=== PATIENT | female | born 1985 | race Caucasian/White ===

== ENCOUNTER 2022-09-26 22:04 | Emergency (ER) | payer MEDICAID, SELFPAY ==
[2022-09-26 21:58] VITALS: BP 124/88; PULSE 89; RESP 17; TEMP 36.7; O2SAT 97
--- NOTE | 2022-09-26 22:21 | W.ED.GENAD ---
Discharge Plan Disposition Condition: Stable Discharge Details Chief Complaint: PsychEval Clinical Impression: Major depressive disorder with psychotic features Primary Care Provider: Rose Garcia ED Provider: Marcos Bingham Home Meds and New Rx's Prescriptions: No Action aripiprazole 5 mg Tablet 5 mg PO QHS cyclobenzaprine 10 mg Tablet 10 mg PO HS gabapentin 600 mg Tablet 600 mg PO TID nicotine 14 mg/24 hr Patch 24 Hour 14 mg ondansetron 4 mg Tablet,Disintegrating 4 mg PO Q6H PRN sertraline 50 mg Tablet 75 mg PO DAILY senna 8.6 mg Capsule 8.6 mg PO QHS methadone 5 mg/5 mL Syringe 115 mg PO Medical Decision Making 37 yo female who is from the [facility] and is in [facility] at a care bed comes in with worsening auditory hallucinations telling her to harm herself. She has had this issues for several months, has been to [place] twice. Was seen by [facility] at the care bed and referred here for voluntary psych placement. Pt denies attempts to harm herself and has no specific plan. She has a normal gait, caox4 with clear speech though is anxious. She has no findings on history or exam to suggest underlying medical process such as endocrine or infectious etiology. Given she has never been here will check basic screening labs. Has already been seen by [facility] and plan is for voluntary placement which she is in agreement with. Will provide a dose of ativan for her anxiety which she agrees with. 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 Labs without significant abnormalities, will remain in the ED until placement found or beds become available at [facility] Differential Diagnosis Differential Diagnosis: schizophrenia, schizoaffective Lab Data Lab results reviewed: Yes I reviewed the patient's lab results. HPI General Mode of arrival: ambulatory (with ems). Date/Time Provider Initiated Documentation: 09/26/22 22:05. Limitations to Documentation: no limitations. Information obtained by: patient and EMS. History of Present Illness 37 year old F presents to the emergency department with the chief complaint of auditory hallucinations, described as moderate, Patient started experiencing this month(s) (3) and it has been constant. No relieving factors improve symptom(s), No exacerbating factors reported . Patient notes denies chest pain, fever/chills, nausea/vomiting and shortness of breath. Related Data Home Medications Medication Instructions Recorded Confirmed aripiprazole 5 mg tablet 5 mg PO QHS 09/26/22 09/26/22 cyclobenzaprine 10 mg tablet 10 mg PO HS 09/26/22 09/26/22 gabapentin 600 mg tablet 600 mg PO TID 09/26/22 09/26/22 methadone 5 mg/5 mL oral syringe 115 mg PO 09/26/22 (FOR ORAL USE ONLY) nicotine 14 mg/24 hr daily 14 mg 09/26/22 transdermal patch ondansetron 4 mg disintegrating 4 mg PO Q6H PRN 09/26/22 09/26/22 tablet sennosides 8.6 mg capsule (senna) 8.6 mg PO QHS 09/26/22 09/26/22 sertraline 50 mg tablet 75 mg PO DAILY 09/26/22 09/26/22 General Stated Complaint: PsychEval SUNIL: 2 Review of Systems All systems reviewed & are unremarkable except as noted in HPI and below Constitutional Constitutional: Denies chills, Denies fever(s) and Denies weakness Cardiovascular Cardiovascular: Denies chest pain and Denies dyspnea Respiratory Respiratory: Denies cough and Denies dyspnea Gastrointestinal Gastrointestinal: Denies abdominal pain, Denies nausea and Denies vomiting Genitourinary Genitourinary: Denies dysuria Musculoskeletal Musculoskeletal: Denies joint swelling Integumentary/Breasts Skin/Breast: Denies rash Neurologic Neurologic: Denies weakness PFSH All Active Problems (Updated 09/26/22 @ 22:43 by Marcos Bingham MD) Major depressive disorder with psychotic features (Acute) Social History Smoking/Tobacco Use Status: Current every day Tobacco Type: cigarettes Smoking risk assessment performed?: Yes Alcohol Intake: never Drug use: Occasionally Substance use type: marijuana Do you feel safe at home: Yes Do you feel safe in your relationship?: Yes Exam Const General: no acute distress Orientation: alert HENMT Head: normal to inspection Ears: external ears normal General nose exam: external nose normal Mouth: moist mucous membranes Eyes General: appearance normal, both eyes and all related structures Neck Neck: normal visual inspection Resp Effort & Inspection: normal respiratory effort and able to speak in complete sentences Cardio Rate: regular rate Skin General skin exam: no rashes or lesions noted Neuro General: patient alert and patient oriented x3 Cranial Nerves: CN's II-XI intact bilaterally Cognition: normal cognition Speech: speech normal Gait: normal gait Motor: muscle tone normal throughout Sensory Exam: no sensory deficits noted Extrem General: normal to inspection Psych Speech and Movement: speech and movement normal Attitude: cooperative Course Vital Signs Vital signs: Vital Signs Temperature 36.7 C 09/26/22 21:58 Pulse 89 09/26/22 21:58 Respiratory Rate 17 09/26/22 21:58 Blood Pressure 124/88 09/26/22 21:58 Pulse Oximetry 97 09/26/22 21:58 Temperature 36.7 C 09/26/22 21:58 Temperature Source Oral 09/26/22 21:58 Pulse 89 09/26/22 21:58 Respiratory Rate 17 09/26/22 21:58 Respiratory Effort Normal 09/26/22 22:04 Blood Pressure 124/88 09/26/22 21:58 Blood Pressure Position Sitting 09/26/22 21:58 Pulse Oximetry 97 09/26/22 21:58 Oxygen Delivery Method Room Air 09/26/22 21:58 Oxygen Flow Rate 0 09/26/22 21:58 Pain Level 0 09/26/22 21:58
[2022-09-26 22:43] LABS: Abs Immature Grans 0.04 10^3/uL (0.0-0.06); Absolute Basophil Count 0.07 10^3/uL (0.0-0.2); Absolute Eosinophil Count 0.14 10^3/uL (0.0-0.7); Absolute Lymphocyte Count 3.47 10^3/uL (1.2-3.4); Absolute Neutrophil Count 6.25 10^3/uL (1.2-6.7); Basophils % 0.7; Eosinophils % 1.3; HCT 39.2 % (36.0-46.0); HGB 13.5 g/dL (11.2-15.7); Immature Grans % 0.4; Lymphocytes % 32.8; MCH 30.9 pg (27.0-33.0); MCHC 34.4 % (32.0-36.0); MCV 90 fL (80-95); MPV 9.3 fL (8.0-11.0); Monocytes % 5.7; Neutrophils % 59.1; Platelet Count 318 10^3/uL (130-400); RBC 4.37 10^6/uL (3.93-5.22); RDW 12.8 % (11.7-14.6); RDW-SD 41.9 fL; WBC 10.57 10^3/uL (4.4-10.8)
--- OUTSIDE RECORDS SUMMARY | 2022-09-26 22:56 | XMS_ITS | Continuity of Care Document ---
Author Name Unknown Organization [facility] Address [address] [place] [address] Care Team Providers Care President And Cmo Name Role Phone Rose Garcia Primary Care Physician Encounter [facility] Date(s): 08/02/22 - 08/02/22 [facility] [address] [place] [address] Encounter Diagnosis Substance use disorder(Discharge Diagnosis) - 08/02/22 Discharge Disposition: Discharge/Transfer - Other Type of Inst Attending Physician: J Carlos Palmer MD Admitting Physician: J Carlos Palmer MD Allergies, Adverse Reactions, Alerts No Known Medication Allergies Substance Reaction Severity Status RAGWEED POLLEN Unknown Active Assessment and Plan Future Appointments Functional Status 08/02/22 Other exposure to Infectious Disease Non e Immunizations Given and Recorded Vaccine Date Status Refusal Reason influenza virus vaccine, live 1 03/14/21 Recorded influenza virus vaccine, live 2 02/19/20 Recorded influenza virus vaccine, live 02/25/19 Recorded SARS-CoV-2 (COVID-19) mRNA-1273 vaccine 10/21/20 R ecorded SARS-CoV-2 (COVID-19) mRNA-1273 vaccine 09/19/20 R ecorded influenza virus vaccine, inactivated 05/28/17 Bryan rded influenza virus vaccine, inactivated 03/21/16 Bryan rded influenza virus vaccine, inactivated 01/26/15 Bryan rded influenza virus vaccine, inactivated 03/10/14 Bryan rded influenza virus vaccine, inactivated 03/06/13 Bryan rded influenza virus vaccine, inactivated 06/11/12 Bryan rded tetanus/diphth/pertuss (Tdap) adult/adol 03/11/12 Recorded 1Result Comment: verified by CS 2Result Comment: Patient tolerated well Medications cyclobenzaprine 10 mg oral tablet 10 mg = 1 tab, Oral, every night at bedtime, # 90 tab, 3 Refill(s), Pharmacy: [id number],152.4, cm, 03/24/22 10:01:00 EDT, Height/Length Dosing, 63.5, kg, 03/24/22 10:01:00 EDT, Weight Dosing Start Date: 05/24/22 Stop Date: 05/19/23 Status: Ordered fluticasone 50 mcg/inh nasal spray 2 sprays, Nasal, Daily, For 30 days, 0 Refill(s) Start Date: 10/11/21 Status: Ordered gabapentin 600 mg oral tablet 600 mg = 1 tab, Oral, 5 times per day, # 150 tab, 11 Refill(s), Pharmacy: [facility], 152.4, cm, 03/24/22 10:01:00 EDT, Height/Length Dosing, 63.5, kg, 03/24/22 10:01:00 EDT, Weight Dosing Start Date: 05/24/22 Stop Date: 05/19/23 Status: Ordered ibuprofen 600 mg oral tablet See Instructions, TAKE ONE TABLET BY MOUTH THREE TIMES A DAY, # 90 tab, 5 Refill(s), Pharmacy: [id number], 152.4, cm, 03/24/22 10:01:00 EDT, Height/Length Dosing, 63.5, kg, 03/24/22 10:01:00 EDT, Weight Dosing Start Date: 05/01/22 Status: Ordered methadone 120 mg =, Oral, Daily, 0 Refill(s) Start Date: 07/09/22 Status: Ordered ondansetron 4 mg oral tablet, disintegrating See Instructions, DISSOLVE ONE TABLET BY MOUTH THREE TIMES DAILY, # 90 tab, 0 Refill(s), Pharmacy: [facility], 152.4, cm, 03/24/22 10:01:00 EDT, Height/Length Dosing, 63.5, kg, 03/24/22 10:01:00 EDT, Weight Dosing Start Date: 04/16/22 Status: Ordered polyethylene glycol 3350 17 g =, Oral, Daily, For 30 days, 0 Refill(s) Start Date: 10/11/21 Status: Ordered SEROquel 25 mg =, Oral, Daily, 0 Refill(s) Start Date: 08/02/22 Status: Ordered SEROquel 25 mg oral tablet 25 mg = 1 tab, Oral, every evening, X 7 days, # 7 tab, 0 Refill(s), 08/09/22 11:15:00 EDT, Pharmacy: [id number], 152, cm, 08/02/22 9:20:00 EST, Height/Length Dosing, 61, kg, 08/02/22 9:20:00 EST, Weight Dosing Start Date: 08/02/22 Stop Date: 08/09/22 Status: Ordered Problem List Condition Confirmation Course Effective Dates Status H ealth Status Informant Anxiety disorder Confirmed Active Attention deficit hyperactivity disorder Confirmed Active Developmental academic disorder Confirmed Active Housing problem 1 Confirmed Active Insomnia 2 Confirmed Active Obstructive sleep apnea syndrome Confirmed Active Osteoarthritis 3 Confirmed 03/26/18 Active pain of left knee 4 Confirmed Active Psychoactive substance abuse 5 Confirmed Active Spasm 6 Confirmed 07/17/20 Active Specific reading disorder Confirmed Active 1From 07-17-2020 visit: 07/08/2020 [facility]'s Rose Fosterismael JUAN hopes that she will get her Disability determination due to her mental health and orthopedic problems. This would help with her housing insecurity and make social determinants of health less of a problem for her. 2From 03-06-2021 visit: 03/03/2021 Worsening. Patient will discuss her sleep problems with Amparo Lema, insurance agency manager. 3From 03-26-2018 visit: 03/26/2018 Onto Celebrex. Also started Omeprazole because she is vomiting. 4From 06-18-2020 visit: Had surgery on the knee after severe ski accident, but knee stability, arthritis led to chronic pain. 04/30/2019 Patient stopped her tramadol and the gabapentin is ok at 600mg FIVE times a day. 2019 We will allow Gabapentin 600mg SIX times a day. 02/19/2020 Sees [facility]OU for methadone and remains on Gabapentin. We will check her EKG at next visit. Patient doing better now than she has in many years. 06/10/[address] of Gabapentin. 06/17/2020 Patient will work with Barby Lema re: the gabapentin. Barby is ok with 600mg QID. Their office will reach out. We will send in promethazine. We will cancel the Cyclobenzaprine refills. 5From 10-05-2019 visit: doing well at [facility] on methadone. 6From 06-08-2021 visit: 03/03/2021 Stable. Patient currently taking cyclobenzaprine 10 mg at bedtime because of knots on theleft knee. 07/08/2020 Worsening. Ok at half to one of Cyclobenzaprine every night. She has a year supply. 06/17/2020 Patient will work with Barby Lema re: the gabapentin. Barby is ok with 600mg QID. Their office will reach out. We will send in promethazine. We will cancel the Cyclobenzaprine refills. Procedures Procedure Date Related Diagnosis Body Site Status Orthopedic surgery 1 11/22/11 Comp leted 1knee arthroscopy with anterior cruciate ligament reconstruction. (See full report) Results Laboratory List Name Date Test Urine Qual 08/02/22 Urinalysis with Micro if Indicated and C ulture if Indicated 08/02/22 Most recent to oldest [Reference Range]: 1 UA Color Pale Yellow (08/02/22 9:55 AM) UA Urobilinogen Normal (08/02/22 9:55 AM) UA Bili [Negative] Negative (08/02/22 9:55 AM) UA Ketones Trace *ABN* (08/02/22 9:55 AM) UA Leuk Est Negative (08/02/22 9:55 AM) UA Nitrite Negative (08/02/22 9:55 AM) UA Glucose [Negative] Negative (08/02/22 9:55 AM) UA Protein Negative (08/02/22 9:55 AM) UA Blood Negative (08/02/22 9:55 AM) UA Spec Grav <=1.005 *NA* (08/02/22 9:55 AM) UA pH 6.0 *NA* (08/02/22 9:55 AM) UA Appear Clear (08/02/22 9:55 AM) U hCG Ql Negative (08/02/22 9:55 AM) Vital Signs Most recent to oldest [Reference Range]: 1 Temperature Temporal Artery [36-38 Deg C ] 37.7 Deg C (08/02/22 9:06 AM) Peripheral Pulse Rate [60-100 bpm] 105 b pm *HI* (08/02/22 9:06 AM) Respiratory Rate [12-24 br/min] 16 br/mi n (08/02/22 9:06 AM) Blood Pressure [90-140/60-90 mmHg] 108/8 4mmHg (08/02/22 9:06 AM) Weight Dosing 61.00 kg (08/02/22 9:20 AM) Weight Estimated 61.00 kg (08/02/22 9:06 AM) Height/Length Dosing 152.000 cm (08/02/22 9:20 AM) Height/Length Estimated 152.000 cm (08/02/22 9:06 AM) Social History Social History Type Response Smoking Status Smoking tobacco use: Never tobacco user;Never 1 entered on: 10/11/21 Sex Female 1most recent tobacco screenin09-01-2021 Hospital Discharge Instructions Patient Education 08/02/2022 10:14:54 Substance Use Disorder Substance Use Disorder Substance use disorder occurs when a person's repeated use of drugs or alcohol interferes with his or her ability to be productive. This disorder can cause problems with mental and physical health. It can affect your ability to have healthy relationships, and it can keep you from being able to meetyour responsibilities at work, home, or school. It can also lead to addiction, which is a conditionin which the person cannot stop using the substance consistently for a period of time. Addiction changes the way the brain works. Because of these changes, addiction is a chronic condition. Substance use disorder can be mild, moderate, or severe. The most commonly abused substances include: ??? Alcohol. ??? Tobacco. ??? Marijuana. ??? Stimulants, such as cocaine and methamphetamine. ??? Hallucinogens, such as LSD and PCP. ??? Opioids, such as some prescription pain medicines and heroin. What are the causes? This condition may develop due to many complex social, psychological, or physical reasons, such as: ??? Stress. ??? Abuse. ??? Peer pressure. ??? Anxiety or depression. What increases the risk? This condition is more likely to develop in people who: ??? Use substances to cope with stress. ??? Have been abused. ??? Have a mental health disorder, such as depression. ??? Have a family history of substance use disorder. What are the signs or symptoms? Symptoms of this condition include: ??? Using the substance for longer periods of time or at a higher dosage than what is normal or intended. ??? Having a lasting desire to use the substance. ??? Being unable to slow down or stop the use of the substance. ??? Spending an abnormal amount of time getting the substance, using the substance, or recovering from using the substance. ??? Using the substance in a way that interferes with work, school, social activities, and personalrelationships. ??? Using the substance even after having negative consequences, such as: ??? Health problems. ??? Legal or financial troubles. ??? Job loss. ??? Relationship problems. ??? Needing more and more of the substance to get the same effect (developing tolerance). ??? Experiencing unpleasant symptoms if you do not use the substance (withdrawal). ??? Using the substance to avoid withdrawal symptoms. How is this diagnosed? This condition may be diagnosed based on: ??? A physical exam. ??? Your history of substance use. ??? Your symptoms. This includes: ??? How substance use affects your life. ??? Changes in personality, behaviors, and mood. ??? Having at least two symptoms of substance use disorder within a 12-month period. ??? Health issues related to substance use, such as liver damage, shortness of breath, fatigue, cough, or heart problems. ??? Blood or urine tests to screen for alcohol and drugs. How is this treated? This condition may be treated by: ??? Stopping substance use safely. This may require taking medicines and being closely monitored for several days. ??? Taking part in group and individual counseling from mental health providers who help people with substance use disorder. ??? Staying at a live-in (residential) treatment center for several days or weeks. ??? Attending daily counseling sessions at a treatment center. ??? Taking medicine as told by your health care provider: ??? To ease symptoms and prevent complications during withdrawal. ??? To treat other mental health issues, such as depression or anxiety. ??? To block cravings by causing the same effects as the substance. ??? To block the effects of the substance or replace good sensations with unpleasant ones. ??? Participating in a support group to share your experience with others who are going through thesame thing. These groups are an important part of long-term recovery for many people. Recovery can be a long process. Many people who undergo treatment start using the substance again after stopping (relapse). If you relapse, that does not mean that treatment will not work. Follow these instructions at home: ??? Take vcvc-fkz-mpwuvrb and prescription medicines only as told by your health care provider. ??? Do not use any drugs or alcohol. ??? Avoid temptations or triggers that you associate with your use of the substance. ??? Learn and practice techniques for managing stress. ??? Have a plan for vulnerable moments. Get phone numbers of people who are willing to help and whoare committed to your recovery. ??? Attend support groups on a regular basis. These groups include 12-step programs like AlcoholicsAnonymous and Narcotics Anonymous. ??? Keep all follow-up visits as told by your health care providers. This is important. This includes continuing to work with therapists and support groups. Contact a health care provider if: ??? You cannot take your medicines as told. ??? Your symptoms get worse. ??? You have trouble resisting the urge to use drugs or alcohol. Get help right away if you: ??? Relapse. ??? Think that you may have taken too much of a drug. The hotline of the National Poison Control Center is . ??? Have signs of an overdose. Symptoms include: ??? Chest pain. ??? Confusion. ??? Sleepiness or difficulty staying awake. ??? Slowed breathing. ??? Nausea or vomiting. ??? A seizure. ??? Have serious thoughts about hurting yourself or someone else. Drug overdose is an emergency. Do not wait to see if the symptoms will go away. Get medical help right away. Call your local emergency services (648 in the [place] Do not drive yourself to the hospital. If you ever feel like you may hurt yourself or others, or have thoughts about taking your own life,get help right away. You can go to your nearest emergency department or call: ??? Your local emergency services (923 in the [place] ??? A suicide crisis helpline, such as the National Suicide Prevention Lifeline at . This is open 24 hours a day. Summary ??? Substance use disorder occurs when a person's repeated use of drugs or alcohol interferes with his or her ability to be productive. ??? Taking part in group and individual counseling from mental health providers is a common treatment for people with substance use disorder. ??? Recovery can be a long process. Many people who undergo treatment start using the substance again after stopping (relapse). A relapse does not mean that treatment will not work. ??? Attend support groups such as Alcoholics Anonymous and Narcotics Anonymous. These groups are animportant part of long-term recovery for many people. This information is not intended to replace advice given to you by your health care provider. Make sure you discuss any questions you have with your health care provider. Document Revised: 09/04/2019 Document Reviewed: 06/25/2018 [employer] Patient Education ?? 2021 [employer]. Follow Up Care 08/02/2022 09:06:35 With:Rose Garcia PA-C Address: [address] [place] [phone] When:1 week Emergency department Discharge instructions * J Carlos Palmer MD: PERFORM Event Display: ED Discharge Information Authored Date: [id number] JOSE MORRIS :1985 Age:37 years Sex:Female Visit Date:08/02/2022 Primary Care Physician: Rose Garcia PA-C Discharge Instructions We would like to thank you for allowing us to assist you with your healthcare needs. The following includes patient education materials and information regarding your injury/illness. Diagnosis from Today's Visit Substance use disorder Discharge Vitals Temperature??(Temporal Artery) 99.9 ??F (37.7 ??C) Heart Rate??(Peripheral) 105 Respiratory Rate?? 16 Blood Pressure?? 108/84?? Height?? 59.84 in (152.000 cm) Weight??(Estimated) 134.50 lb (61.00 kg) Allergies No Known Medication Allergies RAGWEED POLLEN What to Do Next Instructions from Your Care Team Please follow-up with your regular doctor for long-term refills on your medications.?? Please return to the emergency department if you have any new or concerning symptoms including any thoughts of wanting to hurt yourself, hurt anybody else, any fever, new pains, or other concerns. You Need to Schedule the Following Appointments Follow Up with??Rose Garcia PA-C When:??Within 1 week Where: [address] [place] [phone] Upcoming Scheduled Appointments Sunday 12:40 PM EDT ?? You were treated today on an emergency basis; it may be soto to contact your primary care provider to notify them of your visit today. You may have been referred to your regular doctor or a specialist, please follow up as instructed. If your condition worsens or you can't get in to see the doctor, contact the Emergency Department. Medications What How Much When Why Instructions Next Dose Changed QUEtiapine (SEROquel 25 mg oral tablet) 1 tab Oral (given by mouth) Every evening Substance use disorder Duration: 7 Days Pickup at [facility] Changed QUEtiapine (SEROquel) 25 Milligrams Oral (given by mouth) Every day Unchanged cyclobenzaprine (cyclobenzaprine 10 mg oral tablet) 1 tab Oral (given by mouth) Every night at bedtime Duration: 90 Days Unchanged fluticasone nasal (fluticasone 50 mcg/ inh nasal spray) 2 Sprays Nasal (into the nose) Every day For 30 days ?? Unchanged gabapentin (gabapentin 600 mg oral tablet) 1 tab Oral (given by mouth) 5 times per day Adjustment disorder with anxious mood Duration: 30 Days Unchanged ibuprofen (ibuprofen 600 mg oral tablet) See instructions TAKE ONE TABLET BY MOUTH THREE TIMES A DAY ?? Unchanged methadone 120 Milligrams Oral (given by mouth) Every day Unchanged ondansetron (ondansetron 4 mg oral tablet, disintegrating) See instructions DISSOLVE ONE TABLET BY MOUTH THREE TIMES DAILY ?? Unchanged polyethylene glycol 3350 17 Gram Oral (given by mouth) Every day For 30 days ?? Pharmacy Information [facility]: [address], [place] [id number] [phone] Education Materials Substance Use Disorder Substance use disorder occurs when a person's repeated use of drugs or alcohol interferes with his or her ability to be productive. This disorder can cause problems with mental and physical health. It can affect your ability to have healthy relationships, and it can keep you from being able to meetyour responsibilities at work, home, or school. It can also lead to addiction, which is a conditionin which the person cannot stop using the substance consistently for a period of time. Addiction changes the way the brain works. Because of these changes, addiction is a chronic condition. Substance use disorder can be mild, moderate, or severe. The most commonly abused substances include: ? Alcohol. ? Tobacco. ? Marijuana. ? Stimulants, such as cocaine and methamphetamine. ? Hallucinogens, such as LSD and PCP. ? Opioids, such as some prescription pain medicines and heroin. What are the causes? This condition may develop due to many complex social, psychological, or physical reasons, such as: ? Stress. ? Abuse. ? Peer pressure. ? Anxiety or depression. What increases the risk? This condition is more likely to develop in people who: ? Use substances to cope with stress. ? Have been abused. ? Have a mental health disorder, such as depression. ? Have a family history of substance use disorder. What are the signs or symptoms? Symptoms of this condition include: ? Using the substance for longer periods of time or at a higher dosage than what is normal or intended. ? Having a lasting desire to use the substance. ? Being unable to slow down or stop the use of the substance. ? Spending an abnormal amount of time getting the substance, using the substance, or recovering from using the substance. ? Using the substance in a way that interferes with work, school, social activities, and personal relationships. ? Using the substance even after having negative consequences, such as: ? Health problems. ? Legal or financial troubles. ? Job loss. ? Relationship problems. ? Needing more and more of the substance to get the same effect (developing tolerance). ? Experiencing unpleasant symptoms if you do not use the substance (withdrawal). ? Using the substance to avoid withdrawal symptoms. How is this diagnosed? This condition may be diagnosed based on: ? A physical exam. ? Your history of substance use. ? Your symptoms. This includes: ? How substance use affects your life. ? Changes in personality, behaviors, and mood. ? Having at least two symptoms of substance use disorder within a 12-month period. ? Health issues related to substance use, such as liver damage, shortness of breath, fatigue, cough, or heart problems. ? Blood or urine tests to screen for alcohol and drugs. How is this treated? This condition may be treated by: ? Stopping substance use safely. This may require taking medicines and being closely monitored for several days. ? Taking part in group and individual counseling from mental health providers who help people with substance use disorder. ? Staying at a live-in (residential) treatment center for several days or weeks. ? Attending daily counseling sessions at a treatment center. ? Taking medicine as told by your health care provider: ? To ease symptoms and prevent complications during withdrawal. ? To treat other mental health issues, such as depression or anxiety. ? To block cravings by causing the same effects as the substance. ? To block the effects of the substance or replace good sensations with unpleasant ones. ? Participating in a support group to share your experience with others who are going through the same thing. These groups are an important part of long-term recovery for many people. Recovery can be a long process. Many people who undergo treatment start using the substance again after stopping (relapse). If you relapse, that does not mean that treatment will not work. Follow these instructions at home: ? Take spkf-tyv-xqthyrk and prescription medicines only as told by your health care provider. ? Do not use any drugs or alcohol. ? Avoid temptations or triggers that you associate with your use of the substance. ? Learn and practice techniques for managing stress. ? Have a plan for vulnerable moments. Get phone numbers of people who are willing to help and who arecommitted to your recovery. ? Attend support groups on a regular basis. These groups include 12-step programs like Alcoholics Anonymous and Narcotics Anonymous. ? Keep all follow-up visits as told by your health care providers. This is important. This includes continuing to work with therapists and support groups. Contact a health care provider if: ? You cannot take your medicines as told. ? Your symptoms get worse. ? You have trouble resisting the urge to use drugs or alcohol. Get help right away if you: ? Relapse. ? Think that you may have taken too much of a drug. The hotline of the National Poison Control Centeris . ? Have signs of an overdose. Symptoms include: ? Chest pain. ? Confusion. ? Sleepiness or difficulty staying awake. ? Slowed breathing. ? Nausea or vomiting. ? A seizure. ? Have serious thoughts about hurting yourself or someone else. Drug overdose is an emergency. Do not wait to see if the symptoms will go away. Get medical help right away. Call your local emergency services (641 in the [place] Do not drive yourself to the hospital. If you ever feel like you may hurt yourself or others, or have thoughts about taking your own life,get help right away. You can go to your nearest emergency department or call: ? Your local emergency services (959 in the [place] ? A suicide crisis helpline, such as the National Suicide Prevention Lifeline at . Thisis open 24 hours a day. Summary ? Substance use disorder occurs when a person's repeated use of drugs or alcohol interferes with his or her ability to be productive. ? Taking part in group and individual counseling from mental health providers is a common treatment for people with substance use disorder. ? Recovery can be a long process. Many people who undergo treatment start using the substance again after stopping (relapse). A relapse does not mean that treatment will not work. ? Attend support groups such as Alcoholics Anonymous and Narcotics Anonymous. These groups are an important part of long-term recovery for many people. This information is not intended to replace advice given to you by your health care provider. Make sure you discuss any questions you have with your health care provider. Document Revised: 09/04/2019 Document Reviewed: 06/25/2018 [employer] Patient Education ?? 2021 [employer] Tests Performed Lab Test Name Test Result Date/Time U hCG Ql NEGATIVE 08/02/2022 09:55 EST UA Color Pale Yello 08/02/2022 09:55 EST UA Appear CLEAR. 08/02/2022 09:55 EST UA Glucose NEGATIVE 08/02/2022 09:55 EST UA Bili NEGATIVE 08/02/2022 09:55 EST UA Ketones TRACE. 08/02/2022 09:55 EST UA Spec Grav <=1.005 08/02/2022 09:55 EST UA Blood NEGATIVE 08/02/2022 09:55 EST UA pH 6.0 08/02/2022 09:55 EST UA Protein NEGATIVE 08/02/2022 09:55 EST UA Urobilinogen 0.2 Uro 08/02/2022 09:55 EST UA Nitrite NEGATIVE 08/02/2022 09:55 EST UA Leuk Est NEGATIVE 08/02/2022 09:55 EST Patient/Education Manager Signature Patient Name:JOSE MORRIS I have received this information and my questions have been answered. Patient/Education Manager Name: Patient/Education Manager Signature: Relationship to Patient: Witness Name/Signature: Date: Electronically Signed on: 08/02/2022 11:16 ESTSigned by:LISY Emergency department Note * Codi Slade: PERFORM Event Display: ED Notes Authored Date: [id number] Patient Care team information Care Team Personnel Name: Rose Garcia PA-C Position: Physician Member Role: Informed Provider Address: Address: [address] [place] [phone] [place] Name: Simón Boyd RN Position: Nurse Member Role: ED Nurse Name: J Carlos Palmer MD Position: Physician Member Role: ED Physician Address: Address: [address] [place] [address] [address] [place] [address] [place] Care Team Related Persons Name: LYNDSEY MORRIS Address: Home Name: JS MORRIS Address: Home
--- OUTSIDE RECORDS SUMMARY | 2022-09-26 22:56 | XMS_ITS | Continuity of Care Document ---
Author Name Unknown Organization [facility] Address [address] [place] [address] Care Team Providers Care Solid Glass Rod Dowel Machine Operator Name Role Phone Rose Garcia Primary Care Physician Encounter NCTY_HI Date(s): 07/09/22 - 07/11/22 [facility] [address] [place] [address] Encounter Diagnosis Suicidal ideation(Discharge Diagnosis) - 07/09/22 Psychosis(Discharge Diagnosis) - 07/09/22 Suicidal ideations(Final) - Unspecified psychosis not due to a substance or known physiological condition (Final) - Other snf (current) drug therapy(Final) - Contact with and (suspected) exposure to other viral communicable diseases (Final) - Discharge Disposition: Psychiatric Facility/Unit Attending Physician: Darryl August MD Admitting Physician: Darryl August MD Allergies, Adverse Reactions, Alerts No Known Medication Allergies Substance Reaction Severity Status RAGWEED POLLEN Unknown Active Assessment and Plan Future Appointments Functional Status 07/11/22 ADLs Independent 07/11/22 Breakfast Percent 100 07/09/22 Other exposure to Infectious Disease Non e [...] bedtime, # 90 tab, 3 Refill(s), Pharmacy: [id number],152.4, cm, 03/24/22 10:01:00 EDT, Height/Length Dosing, 63.5, kg, 03/24/22 10:01:00 EDT, Weight Dosing Start Date: 05/24/22 Stop Date: 05/19/23 Status: Ordered fluticasone 50 mcg/inh nasal spray 2 sprays, Nasal, Daily, For 30 days, 0 Refill(s) Start Date: 10/11/21 Status: Ordered gabapentin 600 mg oral tablet 600 mg = 1 tab, Oral, 5 times per day, # 150 tab, 11 Refill(s), Pharmacy: [facility][id number], 152.4, cm, 03/24/22 10:01:00 EDT, Height/Length Dosing, 63.5, kg, 03/24/22 10:01:00 EDT, Weight Dosing Start Date: 05/24/22 Stop Date: 05/19/23 Status: Ordered ibuprofen 600 mg oral tablet See Instructions, TAKE ONE TABLET BY MOUTH THREE TIMES A DAY, # 90 tab, 5 Refill(s), Pharmacy: [facility][id number], 152.4, cm, 03/24/22 10:01:00 EDT, Height/Length Dosing, 63.5, kg, 03/24/22 10:01:00 EDT, Weight Dosing Start Date: 05/01/22 Status: Ordered methadone 120 mg, Oral, Tab-Dispers, Once, First Dose: 07/11/22 6:09:00 EST, Stop Date: 07/11/22 6:09:00 EST,Physician Stop, STAT Start Date: 07/11/22 Stop Date: 07/11/22 Status: Completed methadone 120 mg =, Oral, Daily, 0 Refill(s) Start Date: 07/09/22 Status: Ordered methadone 120 mg, Oral, Tab-Dispers, First Dose: 07/10/22 5:41:00 EST, Stop Date: 07/10/22 5:41:00 EST, STAT Start Date: 07/10/22 Stop Date: 07/10/22 Status: Completed ondansetron 4 mg oral tablet, disintegrating See Instructions, DISSOLVE ONE TABLET BY MOUTH THREE TIMES DAILY, # 90 tab, 0 Refill(s), Pharmacy: [facility][id number], 152.4, cm, 03/24/22 10:01:00 EDT, Height/Length Dosing, 63.5, kg, 03/24/22 10:01:00 EDT, Weight Dosing Start Date: 04/16/22 Status: Ordered polyethylene glycol 3350 17 g =, Oral, Daily, For 30 days, 0 Refill(s) Start Date: 10/11/21 Status: Ordered Problem List Condition Confirmation Course [...] disorder Confirmed Active 1From 07-17-2020 visit: 07/08/[address] [facility] Rose Radha JUAN hopes that she will get her Disability determination due to her mental health and orthopedic problems. This would help with her housing insecurity and make social determinants of health less of a problem for her. 2From 03-06-2021 visit: 03/03/2021 Worsening. Patient will discuss her sleep problems with Amparo Leam, ethylbenzene converter operator. 3From 03-26-2018 visit: 03/26/2018 Onto Celebrex. Also [...] Gabapentin. 06/17/2020 Patient will work with Barby lee: the gabapentin. [facility]by is ok with 600mg QID. Their office will reach out. We will send in promethazine. We will cancel the Cyclobenzaprine refills. 5From 10-05-2019 visit: doing well at [facility] on methadone. 6From 06-08-2021 visit: [...] full report) Results Laboratory List Name Date SARS-CoV-2 (COVID-19) RNA (ID Now) Acetaminophen Level 07/09/22 Alcohol Level 07/09/22 CBC w/ Diff 07/09/22 Comprehensive Metabolic Panel (CMP) 07/09 Salicylate Level 07/09/22 Test Urine Qual 07/09/22 Drug Screen Urine 07/09/22 Urinalysis with Micro if Indicated and C ulture if Indicated 07/09/22 Urinalysis Microscopic 07/09/22 Automated Diff 07/09/22 Most recent to oldest [Reference Range]: 1 WBC [5.0-10.0 x10^3/mcL] 8.6 x10^3/mcL (07/09/22 6:20 PM) RBC [4.1-5.3 x10^6/mcL] 4.2 x10^6/mcL (07/09/22 6:20 PM) Neutro Auto [40.0-75.0 %] 55.2 % (07/09/22 6:20 PM) Lymph Auto [20.0-50.0 %] 36.9 % (07/09/22 6:20 PM) Bee Auto [2.0-15.0 %] 6.4 % (07/09/22 6:20 PM) Basophil Auto [0.0-1.0 %] 0.7 % (07/09/22 6:20 PM) BUN [7-18 mg/dL] 9 mg/dL (07/09/22 6:20 PM) U Amph Scrn [Negative] Negative (07/09/22 6:02 PM) UA Color Pale Yellow (07/09/22 6:02 PM) UA WBC [0-3] 3-5 *ABN* (07/09/22 6:02 PM) Glucose Level [74-106 mg/dL] 80 mg/dL (07/09/22 6:20 PM) Potassium Level [3.5-5.1 mmol/L] 3.7 mmo l/L (07/09/22 6:20 PM) U Benzodia Scrn [Negative] Negative (07/09/22 6:02 PM) MCV [80.0-96.0] 91.7 (07/09/22 6:20 PM) UA Urobilinogen Normal (07/09/22 6:02 PM) UA Bili [Negative] Negative (07/09/22 6:02 PM) UA Ketones Negative (07/09/22 6:02 PM) AST [15-37 unit/L] 20 unit/L (07/09/22 6:20 PM) ALT [14-59 unit/L] 19 unit/L (07/09/22 6:20 PM) MCHC [31.0-35.0 g/dL] 33.8 g/dL (07/09/22 6:20 PM) Sodium Level [136-145 mmol/L] 136 mmol/L (07/09/22 6:20 PM) UA RBC [0-2] 0-2 (07/09/22 6:02 PM) UA Leuk Est 1+ *ABN* (07/09/22 6:02 PM) UA Nitrite Positive *ABN* (07/09/22 6:02 PM) UA Glucose [Negative] Negative (07/09/22 6:02 PM) Hct [37.0-47.0 %] 38.5 % (07/09/22 6:20 PM) UA Bacteria Moderate /HPF *ABN* (07/09/22 6:02 PM) U Cocaine Scrn [Negative] Negative (07/09/22 6:02 PM) Calcium Level [8.5-10.1 mg/dL] 9.7 mg/dL (07/09/22 6:20 PM) Albumin Level [3.4-5.0 g/dL] 4.6 g/dL (07/09/22 6:20 PM) Protein Total [6.4-8.2 g/dL] 8.1 g/dL (07/09/22 6:20 PM) UA Protein Negative (07/09/22 6:02 PM) MCH [26.0-32.0 pg] 31.0 pg (07/09/22:20 PM) Neutro Absolute 4.7 x10^3/mcL *NA* (07/09/22:20 PM) Bilirubin Total [0.2-1.0 mg/dL] 0.2 mg/d L (07/09/22:20 PM) Hgb [12.0-16.0 g/dL] 13.0 g/dL (07/09/22 6:20 PM) Alk Phos [46-146 unit/L] 80 unit/L (07/09/22 6:20 PM) UA Blood Negative (07/09/22 6:02 PM) Salicylate Level [2.8-20.0 mg/dL] 6.3 mg /dL (07/09/22 6:20 PM) Ethanol Level [0-10 mg/dL] <5 mg/dL (07/09/22 6:20 PM) UA Mucous None Seen /HPF (07/09/22 6:02 PM) UA Spec Grav <=1.005 *NA* (07/09/22 6:02 PM) Platelets [130-450 x10^3/mcL] 294 x10^3/ mcL (07/09/22 6:20 PM) CO2 [21-32 mmol/L] 26 mmol/L (07/09/22 6:20 PM) U Anjana Scrn [Negative] Negative (07/09/22 6:02 PM) UA Squam Epithelial [None Seen] Moderate *ABN* (07/09/22 6:02 PM) UA pH 6.5 *NA* (07/09/22 6:02 PM) U Opiate Scrn [Negative] Negative (07/09/22 6:02 PM) eGFR Non-AA [>=60] 75 (07/09/22 6:20 PM) eGFR AA [>=60] 75 (07/09/22 6:20 PM) UA Appear Hazy *ABN* (07/09/22 6:02 PM) Acetaminophen Level [10-20 ug/mL] <10 ug /mL *LOW* (07/09/22 6:20 PM) Chloride Level [98-107 mmol/L] 98 mmol/L (07/09/22 6:20 PM) U Oxy Scrn [Negative] Negative (07/09/22 6:02 PM) U PCP Scrn [Negative] Negative (07/09/22 6:02 PM) RDW-CV [11.7-17.0 %] 12.5 % (07/09/22 6:20 PM) U THC Scr [Negative] Positive *ABN* (07/09/22 6:02 PM) U PPX Scr [Negative] Negative (07/09/22 6:02 PM) U Methadone Scr [Negative] Positive *ABN* (07/09/22 6:02 PM) Imm Gran Auto [0.0-0.9 %] 0.3 % (07/09/22 6:20 PM) UA Culture Ind?. Indicated (07/09/22 6:02 PM) U Buprenorph Scr [Negative] Negative (07/09/22 6:02 PM) U mAMP Scr [Negative] Negative (07/09/22 6:02 PM) U TCA Scr [Negative] Negative (07/09/22 6:02 PM) Creatinine Level [0.55-1.02 mg/dL] 0.99 mg/dL (07/09/22 6:20 PM) SARS-CoV-2 (COVID-19) RNA (ID Now) [Not Detected] Not Detected (07/10/22 6:40 AM) Eos, Auto [1.0-6.0 %] 0.5 % *LOW* (07/09/22 6:20 PM) U hCG Ql Negative (07/09/22 6:02 PM) UA Yeast [None Seen] Rare *ABN* (07/09/22 6:02 PM) Orders for Microbiology Reports Name Date Urine Culture 07/09/22 Microbiology Reports TEST:Urine Culture STATUS:Auth (Verified) BODY SITE: SOURCE:Urine COLLECTED DATE/TIME:07/09/22 6:02 PM FINAL REPORT >100,000 cfu/ml Escherichia coli ORGANISM:Escherichia coli Vital Signs Most recent to oldest [Reference Range]: 1 2 3 Temperature Temporal Artery [36-38 Deg C] 36.4 Deg C (07/09/22 5:24 PM) Peripheral Pulse Rate [60-100 bpm] 102 bpm *HI* (07/09/22 5:24 PM) Respiratory Rate [12-24 br/min] 20 br/min (07/11/22 6:36 AM) 22 br/min (07/10/22 6:04 AM) 24 br/min (07/09/22 5:24 PM) Blood Pressure [90-140/60-90 mmHg] 130/99mmHg (07/09/22 5:24 PM) Weight Dosing 61.37 kg (07/09/22 5:43 PM) Weight Estimated 61.37 kg (07/09/22 5:24 PM) Height/Length Dosing 152.000 cm (07/09/22 5:43 PM) Height/Length Estimated 152.000 cm (07/09/22 5:24 PM) Social History Social History Type Response Smoking Status Smoking tobacco use: Never tobacco user;Never 1 entered on: 10/11/21 Sex Female 1most recent tobacco screenin09-01-2021 Pharmacology Progress note * Dianne Yang PharmD: PERFORM Event Display: Pharmacy Progress Note Authored Date: [id number] Pharmacy Progress Note med rec updated with [facility] and [facility] programs. Confirmed with Krista at [facility] patient picked up 120 mg of methadone 07/08/22 and picked up one take home dose for 07/09/22 HUSSAIN pharmD Electronically Signed on 07/10/22 11:12 AM Dianne Yang PharmD Physician Emergency department Note * Sapna Soto MD: PERFORM Event Display: ED Note Physician Authored Date: [id number] JOSE MORRIS :1985 Age:37 years Sex:Female Visit Date:07/09/2022 Primary Care Physician: Rose Garcia PA-C Basic Information Time Seen: Darryl August MD / 07/09/2022 17:25 Chief Complaint Pt presents w/ EMS, reports auditory hallucinations, SI w/ a plan, hx substance abuse including cocaine last week. Pt's plan is to OD on drugs. Pt rapid pressured speech, states I can't slow my brain down. Pt says she knows she needs help before her fam History Of Present Illness: Patient reports that she has suicidal ideation she plans to??overdose or walk out in the cold??where her parents will have to clean up??she states. ??Patient reports she is hearing voices she states??they are 2 male voices??they are telling her things like she is a liar and that everything she has??said is a lie??patient during interview seemed to not focus on interview and seemed to be responding to voices she said she was hearing. ??Patient contracts for safety here in the emergency department and??she states she is not??homicidal.?? No fever no chills??no ear pain slight nasal discharge nosore throat??patient smokes??cigarettes and pot??slight cough??no nausea no vomiting no urinary symp toms no extremity edema no skin rashes??patient reports due to the picking that she does she has all the scars??on her forehead and occasionally cuts??No recent cuts Review of Systems: see hpi for ros Physical Exam Vitals & Measurements T:??36.4?C ??(Temporal Artery)?? HR:??102??(Peripheral)?? RR:??24?? BP:??130/99?? SpO2:??96%?? HT:??152.000??cm?? WT:??61.37??kg??(Estimated)?? O2 Therapy:??Room air?? General: Alert and oriented, well nourished,?No??acute distress Eye: PER?Normal??conjunctiva,??No??scleral icterus HENT: Normocephalic,??nontraumatic??Normal hearing Lungs: Clear to auscultation,?Non-labored?? respiration Heart:?Normal?? rate,?Regular??rhythm,?No??murmur,?No??gallop,?No??edema Chest: wall excursion wnl no abnormal movements no obvious deformities Abdomen: Soft, non-tender, non-distended,?No??masses Musculoskeletal:?Normal?? range of motion and strength,?No??tenderness,?No??swelling Skin: Skin is warm, dry and pink,?No??rashes,?No??lesions Neurologic: Awake, alert and oriented X4 Psychiatric: Cooperative, appropriate mood and affect Medical Decision Making: For MDM please see under assessment and plan Procedure No Qualifying Data Assessment/Plan 1.??Suicidal ideation??R45.851 Patient reports suicidal ideation with hearing voices??she also seems to respond??to these voices that she is hearing. ??Patient is medically cleared for disposition as per mental health. 2.??Psychosis??F29 See above. Orders: Acetaminophen Level, Blood, Routine, 07/09/22 17:57:00 EST, Once, Nurse collect Salicylate Level, Blood, Routine, 07/09/22 17:57:00 EST, Once, Nurse collect Urine Culture, Urine, Stat collect, ST - Stat, 07/09/22 18:02:15 EST, Once, Nurse collect, Collected, 07/09/22 18:02:15 EST, Print Label, [id number] Medication Reconciliation Changed [id number] Milligrams. ?? Unchanged cyclobenzaprine (cyclobenzaprine 10 mg oral tablet)1 tab Oral (given by mouth) every night at bedtime for 90 Days. Refills: 3. ?? fluticasone nasal (fluticasone 50 mcg/inh nasal spray)2 Sprays Nasal (into the nose) every day. For30 days. ?? gabapentin (gabapentin 600 mg oral tablet)1 tab Oral (given by mouth) 5 times per day for 30 Days. Refills: 11. ?? ibuprofen (ibuprofen 600 mg oral tablet)TAKE ONE TABLET BY MOUTH THREE TIMES A DAY. Refills: 5. ?? ondansetron (ondansetron 4 mg oral tablet, disintegrating)DISSOLVE ONE TABLET BY MOUTH THREE TIMES DAILY. Refills: 0. ?? polyethylene glycol 321217 Gram Oral (given by mouth) every day. For 30 days. Problem List/Past Medical History Ongoing Anxiety disorder Attention deficit hyperactivity disorder Developmental academic disorder Housing problem Insomnia Obstructive sleep apnea syndrome Osteoarthritis pain of left knee Psychoactive substance abuse Spasm Specific reading disorder Historical No qualifying data Procedure/Surgical History ???Orthopedic surgery (11/23/2011) Allergies No Known Medication Allergies RAGWEED POLLEN Social History Electronic Cigarette/Vaping Electronic Cigarette Use: Never. Other Substance Use Cocaine- Comments: BAART 120 mg po daily Tobacco Never tobacco user Tobacco Use:. Never Smokeless Tobacco use:.- Comments: most recent tobacco screenin09-01-2021 Family History Breast cancer: Mother. Hypertension: Father. Malignant tumor of lung: Negative: Mother, Father, Grandfather (M), Grandfather (P), Grandmother (M) and Grandmother (P). Migraine: Mother. PsA (Psoriatic arthritis): Father. Lab Results CBC and Differential?? LATEST RESULTS?? HISTORICAL RESULTS?? WBC?? 07/09/22 18:20?? 8.6?? 03/24/22?? 7.8?? RBC?? 07/09/22 18:20?? 4.2?? 03/24/22?? 4.7?? Hgb?? 07/09/22 18:20?? 13.0?? 03/24/22?? 14.6?? Hct?? 07/09/22 18:20?? 38.5?? 03/24/22?? 42.1?? MCV?? 07/09/22 18:20?? 91.7?? 03/24/22?? 89.4?? MCH?? 07/09/22 18:20?? 31.0?? 03/24/22?? 31.0?? MCHC?? 02/12/23 18:20?? 33.8?? 03/24/22?? 34.7?? RDW-CV?? 07/09/22 18:20?? 12.5?? 03/24/22?? 12.4?? Platelets?? 07/09/22 18:20?? 294?? 03/24/22?? 352?? Neutro Auto?? 07/09/22 18:20?? 55.2?? 03/24/22?? 71.1?? Lymph Auto?? 07/09/22 18:20?? 36.9?? 03/24/22?? 22.2?? Bee Auto?? 07/09/22 18:20?? 6.4?? 03/24/22?? 5.7?? Eos, Auto?? 07/09/22 18:20?? 0.5 ??Low?? 03/24/22?? 0.3 ??Low?? Basophil Auto?? 07/09/22 18:20?? 0.7?? 03/24/22?? 0.4?? Imm Gran Auto?? 07/09/22 18:20?? 0.3?? 03/24/22?? 0.3?? Neutro Absolute?? 07/09/22 18:20?? 4.7?? 03/24/22?? 5.5? Routine Chemistry?? LATEST RESULTS?? HISTORICAL RESULTS?? Sodium Level?? 07/09/22 18:20?? 136?? 03/24/22?? 136?? Potassium Level?? 07/09/22 18:20?? 3.7?? 03/24/22?? 3.2 ??Low?? Chloride Level?? 07/09/22 18:20?? 98?? 03/24/22?? 93 ??Low?? CO2?? 07/09/22 18:20?? 26?? 03/24/22?? 35 ??High?? Alk Phos?? 07/09/22 18:20?? 80?? 03/24/22?? 86?? AST?? 07/09/22 18:20?? 20?? 03/24/22?? 24?? ALT?? 07/09/22 18:20?? 19?? 03/24/22?? 28?? BUN?? 07/09/22 18:20?? 9?? 03/24/22?? 17?? Glucose Level?? 07/09/22 18:20?? 80?? 03/24/22?? 107 ??High?? Creatinine Level?? 07/09/22 18:20?? 0.99?? 03/24/22?? 1.00?? eGFR AA?? 07/09/22 18:20?? 75?? 03/24/22?? 74?? eGFR Non-AA?? 07/09/22 18:20?? 75?? 03/24/22?? 74?? Calcium Level?? 07/09/22 18:20?? 9.7?? 03/24/22?? 10.6 ??High?? Protein Total?? 07/09/22 18:20?? 8.1?? 03/24/22?? 8.7 ??High?? Albumin Level?? 07/09/22 18:20?? 4.6?? 03/24/22?? 4.7?? Bilirubin Total?? 07/09/22 18:20?? 0.2?? 03/24/22?? 0.3? Testing?? LATEST RESULTS?? U hCG Ql?? 07/09/22 18:02?? Negative? Serum Toxicology?? LATEST RESULTS?? Acetaminophen Level?? 07/09/22 18:20?? <10 ??Low?? Salicylate Level?? 07/09/22 18:20?? 6.3?? Ethanol Level?? 07/09/22 18:20?? <5? Urine Toxicology?? LATEST RESULTS?? U Amph Scrn?? 07/09/22 18:02?? Negative?? U Anjana Scrn?? 07/09/22 18:02?? Negative?? U Benzodia Scrn?? 07/09/22 18:02?? Negative?? U Buprenorph Scr?? 07/09/22 18:02?? Negative?? U Cocaine Scrn?? 02/12/23 18:02?? Negative?? U TCA Scr?? 07/09/22 18:02?? Negative?? U THC Scr?? 07/09/22 18:02?? Positive Abnormal?? U mAMP Scr?? 07/09/22 18:02?? Negative?? U Methadone Scr?? 07/09/22 18:02?? Positive Abnormal?? U Opiate Scrn?? 07/09/22 18:02?? Negative?? U Oxy Scrn?? 07/09/22 18:02?? Negative?? U PCP Scrn?? 07/09/22 18:02?? Negative?? U PPX Scr?? 07/09/22 18:02?? Negative? UA Macroscopic?? LATEST RESULTS?? UA Color?? 07/09/22 18:02?? Pale Yellow?? UA Appear?? 07/09/22 18:02?? Hazy Abnormal?? UA Glucose?? 07/09/22 18:02?? Negative?? UA Bili?? 07/09/22 18:02?? Negative?? UA Ketones?? 07/09/22 18:02?? Negative?? UA Spec Grav?? 07/09/22 18:02?? <=1.005?? UA Blood?? 07/09/22 18:02?? Negative?? UA pH?? 07/09/22 18:02?? 6.5?? UA Protein?? 07/09/22 18:02?? Negative?? UA Urobilinogen?? 07/09/22 18:02?? Normal?? UA Nitrite?? 07/09/22 18:02?? Positive Abnormal?? UA Leuk Est?? 07/09/22 18:02?? 1+ Abnormal?? UA Culture Ind?.?? 07/09/22 18:02?? Indicated? UA Microscopic?? LATEST RESULTS?? UA WBC?? 07/09/22 18:02?? 3-5 Abnormal?? UA RBC?? 07/09/22 18:02?? 0-2?? UA Squam Epithelial?? 07/09/22 18:02?? Moderate Abnormal?? UA Yeast?? 07/09/22 18:02?? Rare Abnormal?? UA Mucous?? 07/09/22 18:02?? None Seen?? UA Bacteria?? 07/09/22 18:02?? Moderate Abnormal? Electronically Signed on 07/09/22 07:45 PM Sapna Soto MD * Renny Boles MD: PERFORM Event Display: ED Note Physician Authored Date: [id number] Patient resting comfortably throughout shift. Patient was given home doses of gabapentin, Flexeril,and later the night was experiencing worsening hallucinations and voluntarily accepted 10 mg PO haloperidol. Conversation was had with Fidel (mental health), patient is currently going to pursue voluntary treatment. However if she attempts to leave AMA, please follow- up for placement of a possible hold on the patient. Electronically Signed on 07/10/22 05:27 AM Renny Boles MD Emergency department Note * Bhavna Vasquez: PERFORM Event Display: ED Notes Authored Date: [id number] * Bhavna Vasquez: PERFORM Event Display: ED Notes Authored Date: [id number] * Bhavna Vasquez: PERFORM Event Display: ED Notes Authored Date: [id number] Patient Care team information Care Team Personnel Name: Rose Garcia PA-C Position: Physician Member Role: Informed Provider Address: Address: [address] [place] [phone] [place] Name: Darryl August MD Position: Physician Member Role: Admitting Physician Address: Address: [address] [place] [phone] [place] Name: Jade Breen RN Position: Nurse Member Role: ED Nurse Name: Aman Egan MD Position: Physician Member Role: ED Physician Address: Address: [address] Name: Maira Mehta Position: Nurse Member Role: ED Nurse Care Team Related Persons Name: LYNDSEY MORRIS Address: Home Name: JS MORRIS Address: Home
--- OUTSIDE RECORDS SUMMARY | 2022-09-26 22:56 | XMS_ITS | Continuity of Care Document ---
Author Name Unknown Organization [facility] Address [address] [place] [address] Care Team Providers Care Box Office Clerk Name Role Phone Rose Garcia Primary Care Physician Encounter [id number] Date(s): 08/08/22 - 08/08/[address] [phone] [place] Encounter Diagnosis Abdominal pain(Discharge Diagnosis) - 08/08/22 Methadone use(Discharge Diagnosis) - 08/08/22 Discharge Disposition: Home or Self Care Attending Physician: Sapna Soto MD Admitting Physician: Sapna Soto MD Allergies, Adverse Reactions, Alerts No Known Medication Allergies Substance Reaction Severity Status RAGWEED POLLEN Unknown Active Assessment and Plan Future Appointments Functional Status 08/08/22 Other exposure to Infectious Disease Non e Immunizations Given and Recorded Vaccine Date Status Refusal Reason influenza virus vaccine, live 1 03/14/21 Recorded influenza virus vaccine, live 2 02/19/20 Recorded influenza virus vaccine, live 02/25/19 Recorded SARS-CoV-2 (COVID-19) mRNA-1273 vaccine 10/21/20 R ecorded SARS-CoV-2 (COVID-19) mRNA-1273 vaccine 09/19/20 R ecorded influenza virus vaccine, inactivated 05/28/17 Bryan rded influenza virus vaccine, inactivated 03/21/16 Bryna rded influenza virus vaccine, inactivated 01/26/15 Bryan [...] bedtime, # 90 tab, 3 Refill(s), Pharmacy: [facility] #58,152, cm, 08/02/22 9:20:00 EST, Height/Length Dosing, 61, kg, 08/02/22 9:20:00 EST, Weight Dosing Start Date: 08/07/22 Stop Date: 08/02/23 Status: Ordered fluticasone 50 mcg/inh nasal spray 2 sprays, Nasal, Daily, For 30 days, 0 Refill(s) Start Date: 10/11/21 Status: Ordered gabapentin 600 mg oral tablet 600 mg = 1 tab, Oral, 5 times per day, # 150 tab, 11 Refill(s), Pharmacy: [facility] #58, 152.4, cm, 03/24/22 10:01:00 EDT, Height/Length Dosing, 63.5, kg, 03/24/22 10:01:00 EDT, Weight Dosing Start Date: 05/24/22 Stop Date: 05/19/23 Status: Ordered ibuprofen 600 mg oral tablet See Instructions, TAKE ONE TABLET BY MOUTH THREE TIMES A DAY, # 90 tab, 5 Refill(s), Pharmacy: [facility] #58, 152.4, cm, 03/24/22 10:01:00 EDT, Height/Length Dosing, 63.5, kg, 03/24/22 10:01:00 EDT, Weight Dosing Start Date: 05/01/22 Status: Ordered methadone 120 mg =, Oral, Daily, 0 Refill(s) Start Date: 07/09/22 Status: Ordered nicotine 14 mg/24 hr transdermal film, extended release 1 patches, Topical, Daily, # 90 patches, 0 Refill(s), Pharmacy: [facility] #58, 152, cm, 08/02/22 9:20:00 EST, Height/Length Dosing, 61, kg, 08/02/22 9:20:00 EST, Weight Dosing Start Date: 08/07/22 Stop Date: 11/05/22 Status: Ordered ondansetron 4 mg oral tablet, disintegrating See Instructions, DISSOLVE ONE TABLET BY MOUTH THREE TIMES DAILY, # 90 tab, 0 Refill(s), Pharmacy: [facility] #58, 152.4, cm, 03/24/22 10:01:00 EDT, Height/Length [...] tab, 0 Refill(s), 08/09/22 11:15:00 EDT, Pharmacy: [facility] #58, 152, cm, 08/02/22 9:20:00 EST, Height/Length [...] disorder Confirmed Active 1From 07-17-2020 visit: 07/08/2020 [facility]'s Rose Radha JUAN hopes that she will get her Disability determination due to her mental health and orthopedic problems. This would help with her housing insecurity and make social determinants of health less of a problem for her. 2From 03-06-2021 visit: 03/03/2021 Worsening. Patient will discuss her sleep problems with Amparo Lema, sports medicine specialist. 3From 03-26-2018 visit: 03/26/2018 Onto Celebrex. Also started Omeprazole because she is vomiting. 4From 06-18-2020 visit: Had surgery on the knee after severe ski accident, but knee stability, arthritis led to chronic pain. 04/30/2019 Patient stopped her tramadol and the gabapentin is ok at 600mg FIVE times a day. 2019 We will allow Gabapentin 600mg SIX times a day. 02/19/2020 Sees [facility] for methadone and remains on Gabapentin. We [...] 5From 10-05-2019 visit: doing well at [facility] on methadone. 6From 06-08-2021 visit: [...] Laboratory List Name Date Test Urine Qual 08/08/22 Most recent to oldest [Reference Range]: 1 U hCG Ql Negative (08/08/22 2:33 PM) Vital Signs Most recent to oldest [Reference Range]: 1 Temperature Temporal Artery [36-38 Deg C ] 36.7 Deg C (08/08/22 1:02 PM) Peripheral Pulse Rate [60-100 bpm] 103 b pm *HI* (08/08/22 1:02 PM) Respiratory Rate [12-24 br/min] 18 br/mi n (08/08/22 1:02 PM) Blood Pressure [90-140/60-90 mmHg] 124/9 5mmHg (08/08/22 1:02 PM) Weight Dosing 61.00 kg (08/08/22 1:12 PM) Weight Estimated 61.00 kg (08/08/22 1:02 PM) Height/Length Dosing 152.000 cm (08/08/22 1:12 PM) Height/Length Estimated 152.000 cm (08/08/22 1:02 PM) Social History Social History Type Response Smoking Status Smoking tobacco use: Never tobacco user;Never 1 entered on: 10/11/21 Sex Female 1most recent tobacco screenin09-01-2021 Hospital Discharge Instructions Patient Education 08/08/2022 15:43:29 Opioid Use Disorder Opioid Use Disorder Opioid use disorder is a condition in which opioids are used for reasons other than medical care. The person may use them even though taking them hurts the person's health and well-being. These drugsare powerful substances that relieve pain. Opioids include drugs such as heroin as well as prescription medicines for pain, such as: ??? Codeine. ??? Morphine. ??? Hydrocodone. ??? Oxycodone. ??? Fentanyl. Taking prescribed opioids regularly can lead to dependence, especially if you take them in larger amounts or more often than they should be taken. Opioid use disorder can lead to problems with mentaland physical health, including: ??? Depression or anxiety. ??? Severe constipation. ??? Malnutrition and weight loss. ??? Sleep problems. ??? Diseases caused by infections, such as hepatitis or HIV. ??? Sexual problems. Opioid use disorder can be dangerous. It increases the risk of suicide and can lead to a life-threatening overdose. What are the causes? This condition is caused by taking opioids. Taking opioids again and again results in changes in the brain that make it hard to control opioid use. Many people develop this condition because they like the way they feel when they take opioids or because they get addicted to them. What increases the risk? This condition is more likely to develop in people who: ??? Have a family history of opioid use disorder. ??? Misuse other drugs. ??? Have a mental illness, such as depression, post-traumatic stress disorder, or antisocial personality disorder. ??? Begin use at an early age, such as during their teenage years. What are the signs or symptoms? Symptoms of this condition include: ??? Taking opioids in larger amounts or for longer periods than you want to. ??? Spending an abnormal amount of time getting opioids, using them, or recovering from their effects. ??? Craving opioids. ??? Using opioids in a way that interferes with work, school, social activities, and personal relationships. ??? Giving up or cutting down on important life activities because of opioid use. ??? Using opioids when it is dangerous, such as when driving a car. ??? Continuing to use the drug even after it has led to problems such as: ??? Physical or mental health problems. ??? Legal or financial troubles. ??? Job loss. ??? Broken relationships. ??? Being unable to slow down or stop your use of the drug. ??? Needing more and more of an opioid to get the same effect (building up a tolerance). ??? Experiencing unpleasant symptoms if you do not use the opioid (withdrawal). Some symptoms of withdrawal include: ??? Depression, anxiety, or feeling irritable. ??? Nausea or vomiting. ??? Muscle aches or spasms. ??? Watery eyes. ??? Trouble sleeping. ??? Yawning. How is this diagnosed? This condition is diagnosed based on: ??? A physical exam. ??? Your history of opioid use. ??? Your symptoms. This includes: ??? How opioid use affects your life. ??? Changes in personality, behaviors, and mood. ??? Having at least two symptoms of opioid use disorder within a 12-month period. ??? Health issues related to using opioids. ??? Blood or urine tests to screen for drugs. How is this treated? The first goal of treatment is to stop your use of opioids. This must be done safely and may involve taking medicines to lessen withdrawal symptoms. Treatment may also involve: ??? Taking part in group and individual counseling from mental health providers who have experiencewith substance use disorder. ??? Staying at a residential treatment center for several days or weeks. ??? Attending daily counseling sessions at a treatment center. ??? Taking medicines as told by your health care provider that: ??? Ease symptoms and prevent complications during withdrawal. ??? Block cravings and block the good feeling that you get from using opioids. ??? Treat other mental health issues, such as depression or anxiety. ??? Reduce agitation. ??? Participating in a support group to share your experience with others who are going through thesame thing. ??? Using opioid maintenance treatment. This involves taking certain kinds of opioid medicines. These medicines satisfy cravings but are safer than opioids that are commonly misused. Recovery can be a long process. Some people who undergo treatment start using opioids again after stopping (relapse). If you relapse, it does not mean that treatment will not work. Follow these instructions at home: Medicines ??? Take miqd-hzd-ggtesvk and prescription medicines only as told by your health care provider. ??? Check with your health care provider before starting any new medicines, herbs, or supplements. General instructions ??? Do not use any drugs or alcohol. ??? Avoid people and activities that trigger your use of opioids. ??? Learn and practice techniques for managing stress. ??? Have a plan for vulnerable moments. These are times when you are most likely to relapse. Get phone numbers of those who are willing to help and who are committed to your recovery. ??? Attend support groups regularly. These groups provide emotional support, advice, and guidance. ??? Keep all follow-up visits. This is important. Follow-up visits include continuing to work with therapists and support groups. Where to find more information ??? National [place] on Drug Abuse: drugabuse.gov ??? Substance Abuse and Mental Health Services Administration: samhsa.gov ??? Narcotics Anonymous: na.org Contact a health care provider if: ??? You cannot take your medicines as told. ??? Your symptoms get worse. ??? You have a relapse. Get help right away if: ??? You may have taken too much of an opioid (overdosed). Common symptoms of an overdose include: ??? Sleepiness or difficulty waking from sleep. ??? Decrease in attention or confusion. ??? Slurred speech. ??? Slowed breathing and a slow pulse (bradycardia). ??? Nausea and vomiting. ??? Abnormally small pupils. ??? You have serious thoughts about hurting yourself or others. These symptoms may represent a serious problem that is an emergency. Do not wait to see if the symptoms will go away. Get medical help right away. Call your local emergency services (911 in the [place] Do not drive yourself to the hospital. If you were prescribed a drug (naloxone) that reverses the effects of an opioid overdose, a friend,family member, or emergency services provider can administer the drug in an emergency. If you ever feel like you may hurt yourself or others, or have thoughts about taking your own life,get help right away. You can go to your nearest emergency department or call: ??? Your local emergency services (911 in the [place] ??? A suicide crisis helpline, such as the National Suicide Prevention Lifeline at . This is open 24 hours a day. Summary ??? Opioid use disorder is a condition in which opioids are used for reasons other than medical care. ??? Opioid use disorder can be dangerous. It can lead to various mental and physical problems, and an opioid overdose can be life-threatening. ??? The first goal of treatment is to stop your use of opioids. This must be done safely and may involve taking medicines to lessen withdrawal symptoms. This information is not intended to replace advice given to you by your health care provider. Make sure you discuss any questions you have with your health care provider. Document Revised: 08/24/2021 Document Reviewed: 08/24/2021 [employer] Patient Education ?? 2021 [employer]. 08/08/2022 15:43:27 Abdominal Pain, Adult Abdominal Pain, Adult Pain in the abdomen (abdominal pain) can be caused by many things. Often, abdominal pain is not serious and it gets better with no treatment or by being treated at home. However, sometimes abdominal pain is serious. Your health care provider will ask questions about your medical history and do a physical exam to try to determine the cause of your abdominal pain. Follow these instructions at home: Medicines ??? Take lmpc-qrr-bcxwmqv and prescription medicines only as told by your health care provider. ??? Do not take a laxative unless told by your health care provider. General instructions ??? Watch your condition for any changes. ??? Drink enough fluid to keep your urine pale yellow. ??? Keep all follow-up visits as told by your health care provider. This is important. Contact a health care provider if: ??? Your abdominal pain changes or gets worse. ??? You are not hungry or you lose weight without trying. ??? You are constipated or have diarrhea for more than 2???3 days. ??? You have pain when you urinate or have a bowel movement. ??? Your abdominal pain wakes you up at night. ??? Your pain gets worse with meals, after eating, or with certain foods. ??? You are vomiting and cannot keep anything down. ??? You have a fever. ??? You have blood in your urine. Get help right away if: ??? Your pain does not go away as soon as your health care provider told you to expect. ??? You cannot stop vomiting. ??? Your pain is only in areas of the abdomen, such as the right side or the left lower portion of the abdomen. Pain on the right side could be caused by appendicitis. ??? You have bloody or black stools, or stools that look like tar. ??? You have severe pain, cramping, or bloating in your abdomen. ??? You have signs of dehydration, such as: ??? Dark urine, very little urine, or no urine. ??? Cracked lips. ??? Dry mouth. ??? Sunken eyes. ??? Sleepiness. ??? Weakness. ??? You have trouble breathing or chest pain. Summary ??? Often, abdominal pain is not serious and it gets better with no treatment or by being treated at home. However, sometimes abdominal pain is serious. ??? Watch your condition for any changes. ??? Take ekjh-lpq-kplxgei and prescription medicines only as told by your health care provider. ??? Contact a health care provider if your abdominal pain changes or gets worse. ??? Get help right away if you have severe pain, cramping, or bloating in your abdomen. This information is not intended to replace advice given to you by your health care provider. Make sure you discuss any questions you have with your health care provider. Document Revised: 07/02/2020 Document Reviewed: 09/22/2019 [employer] Patient Education ?? 2021 [employer]. Follow Up Care 08/08/2022 13:02:05 With:Follow up with primary care provider Address: When:1 to 2 weeks Physician Emergency department Note * Sapna Soto MD: PERFORM Event Display: ED Note Physician Authored Date: [id number] JOSE MORRIS :1985 Age:37 years Sex:Female Visit Date:08/08/2022 Primary Care Physician: Rose Garcia PA-C Basic Information Time Seen: Sapna Soto MD / 08/08/2022 13:51 Chief Complaint Pt brought here by TR for inpatient psych placement, [facility] aware of pt case [facility]. Pt finished detoxing from crack and opiates. Pt denying SI/HI. History Of Present Illness: Patient presented??with [facility] member [facility]reports that she is on methadone chronically.?? Patient worries that if she goes back to her father's house where she lives??that she may use.?? No fever no chills??no ear nose or throat pain??no chest pain??no nausea no vomiting no extremity edema no skin rashes patient denies HI or SI??patient reports she would like to go to [facility]??for rehab she is stating that she would like to??try to come off of methadone she reports.?? Patient reports??menses issues??which may be causing some lower abdominal discomfort Review of Systems: see hpi for ros Physical Exam Vitals & Measurements T:??36.7?C ??(Temporal Artery)?? HR:??103??(Peripheral)?? RR:??18?? BP:??124/95?? SpO2:??98%?? HT:??152.000??cm?? WT:??61.00??kg??(Estimated)?? Pain Score:??5?? O2 Therapy:??Room air?? General: Alert and oriented, well nourished,?No??acute distress Eye: PER?Normal??conjunctiva,??No??scleral icterus HENT: Normocephalic,??nontraumatic??Normal hearing Lungs: Clear to auscultation,?Non-labored?? respiration Heart:?Normal?? rate,?Regular??rhythm,?No??murmur,?No??gallop,?No??edema Chest: wall excursion wnl no abnormal movements no obvious deformities Abdomen: Soft,??nonspecific??lower abdominal tenderness, non- distended,?Normal?? bowel sounds,?No??masses Musculoskeletal:?Normal?? range of motion and strength,?No??tenderness,?No??swelling Skin: Skin is warm, dry and pink,?No??rashes,?No??lesions Neurologic: Awake, alert and oriented X4 Psychiatric: Cooperative, appropriate mood and affect??no SI no HI Medical Decision Making: For MDM please see under assessment and plan Procedure No Qualifying Data Assessment/Plan 1.??Abdominal pain??R10.9 I think patient's abdominal pain is likely from her menses??this should improve??if not patient to follow-up with her primary care provider??or return to the emergency department. Ordered: Discharge Patient, 08/08/22 16:43:00 EDT, Home Independently, Constant Indicator ?? 2.??Methadone use??F11.90 Patient is on methadone and has been for a??while??patient goes to [facility]??any methadone changes patient did bring up with her counselors??and providers at [facility].?? Patient screened by mental health??wedo not have anything to keep patient on??here at the hospital and she will need to follow-up with mental health and??part providers as well as [facility] as needed. Ordered: Discharge Patient, 08/08/22 16:43:00 EDT, Home Independently, Constant Indicator ?? Patient Education Opioid Use Disorder Abdominal Pain, Adult Follow Up With When Contact Information Follow up with primary care provider Within 1 to 2 weeks Additional Instructions: Medication Reconciliation Unchanged cyclobenzaprine (cyclobenzaprine 10 mg oral tablet)1 [...] THREE TIMES A DAY. Refills: 5. ?? [id number] Milligrams Oral (given by mouth) every day. ?? nicotine (nicotine 14 mg/24 hr transdermal film, extended release)1 patch(es) Topical (on the skin)every day for 90 Days. Refills: 0. ?? ondansetron (ondansetron 4 mg oral tablet, disintegrating)DISSOLVE ONE TABLET BY MOUTH THREE TIMES DAILY. Refills: 0. ?? polyethylene glycol 571822 Gram Oral (given by mouth) every day. For 30 days. ?? QUEtiapine (SEROquel 25 mg oral tablet)1 tab Oral (given by mouth) every evening for 7 Days. Refills: 0. ?? QUEtiapine (SEROquel)25 Milligrams Oral (given by mouth) every day. Problem List/Past Medical History Ongoing Anxiety disorder Attention deficit hyperactivity disorder Developmental academic disorder Housing problem Insomnia Obstructive sleep apnea syndrome Osteoarthritis pain of left knee Psychoactive substance abuse Spasm Specific reading disorder Historical No qualifying data Procedure/Surgical History ???Orthopedic surgery (11/23/2011) Allergies No Known Medication Allergies RAGWEED POLLEN Social History Alcohol Past Electronic Cigarette/Vaping Electronic Cigarette Use: Never. Other Substance Use Past, Cocaine- Comments: BAART 120 mg po daily Tobacco Never tobacco user Tobacco Use:. Never Smokeless Tobacco use:.- Comments: most recent tobacco screenin09-01-2021 Family History Breast cancer: Mother. Hypertension: Father. Malignant tumor of lung: Negative: Mother, Father, Grandfather (M), Grandfather (P), Grandmother (M) and Grandmother (P). Migraine: Mother. PsA (Psoriatic arthritis): Father. Lab Results Testing?? LATEST RESULTS?? HISTORICAL RESULTS?? U hCG Ql?? 08/08/22 14:33?? Negative?? 08/02/22?? Negative? Electronically Signed on 08/08/22 04:45 PM Sapna Soto MD Emergency department Discharge instructions * Sapna Soto MD: PERFORM Event Display: ED Discharge Information Authored Date: [id number] JOSE MORRIS :1985 Age:37 years Sex:Female Visit Date:08/08/2022 Primary Care Physician: Rose Garcia PA-C Discharge Instructions We would like to thank you for allowing us to assist you with your healthcare needs. The following includes patient education materials and information regarding your injury/illness. Diagnosis from Today's Visit Abdominal pain Methadone use Discharge Vitals Temperature??(Temporal Artery) 98.1 ??F (36.7 ??C) Heart Rate??(Peripheral) 103 Respiratory Rate?? 18 Blood Pressure?? 124/95?? Height?? 59.84 in (152.000 cm) Weight??(Estimated) 134.50 lb (61.00 kg) Allergies No Known Medication Allergies RAGWEED POLLEN What to Do Next Instructions from Your Care Team Keep any appointments with mental health??and or your counselors. ??Talk to [facility]??about your methadone. You Need to Schedule the Following Appointments Follow Up with??Follow up with primary care provider When:??Within 1 to 2 weeks Upcoming Scheduled Appointments Sunday 12:40 PM EDT [...] How Much When Why Instructions Next Dose Unchanged cyclobenzaprine (cyclobenzaprine 10 mg oraltablet) 1 tab Oral (given by mouth) Every [...] Oral (given by mouth) Every day Unchanged nicotine (nicotine 14 mg/ 24 hr transdermal film, extended release) 1 patch(es) Topical (on the skin) Every day Nicotine dependence Duration: 90 Days Unchanged ondansetron (ondansetron 4 mg oral tablet, disintegrating) See instructions DISSOLVE ONE TABLET BY MOUTH THREE TIMES DAILY ?? Unchanged polyethylene glycol 3350 17 Gram Oral (given by mouth) Every day For 30 days ?? Unchanged QUEtiapine (SEROquel 25 mg oral tablet) 1 tab Oral (given by mouth) Every evening Substance use disorder Duration: 7 Days Unchanged QUEtiapine (SEROquel) 25 Milligrams Oral (given by mouth) Every day Education Materials Opioid Use Disorder Opioid use disorder is a condition in which opioids are used for reasons other than medical care. The person may use them even though taking them hurts the person's health and well-being. These drugsare powerful substances that relieve pain. Opioids include drugs such as heroin as well as prescription medicines for pain, such as: ? Codeine. ? Morphine. ? Hydrocodone. ? Oxycodone. ? Fentanyl. Taking prescribed opioids regularly can lead to dependence, especially if you take them in larger amounts or more often than they should be taken. Opioid use disorder can lead to problems with mentaland physical health, including: ? Depression or anxiety. ? Severe constipation. ? Malnutrition and weight loss. ? Sleep problems. ? Diseases caused by infections, such as hepatitis or HIV. ? Sexual problems. Opioid use disorder can be dangerous. It increases the risk of suicide and can lead to a life-threatening overdose. What are the causes? This condition is caused by taking opioids. Taking opioids again and again results in changes in the brain that make it hard to control opioid use. Many people develop this condition because they like the way they feel when they take opioids or because they get addicted to them. What increases the risk? This condition is more likely to develop in people who: ? Have a family history of opioid use disorder. ? Misuse other drugs. ? Have a mental illness, such as depression, post-traumatic stress disorder, or antisocial personality disorder. ? Begin use at an early age, such as during their teenage years. What are the signs or symptoms? Symptoms of this condition include: ? Taking opioids in larger amounts or for longer periods than you want to. ? Spending an abnormal amount of time getting opioids, using them, or recovering from their effects. ? Craving opioids. ? Using opioids in a way that interferes with work, school, social activities, and personal relationships. ? Giving up or cutting down on important life activities because of opioid use. ? Using opioids when it is dangerous, such as when driving a car. ? Continuing to use the drug even after it has led to problems such as: ? Physical or mental health problems. ? Legal or financial troubles. ? Job loss. ? Broken relationships. ? Being unable to slow down or stop your use of the drug. ? Needing more and more of an opioid to get the same effect (building up a tolerance). ? Experiencing unpleasant symptoms if you do not use the opioid (withdrawal). Some symptoms of withdrawal include: ? Depression, anxiety, or feeling irritable. ? Nausea or vomiting. ? Muscle aches or spasms. ? Watery eyes. ? Trouble sleeping. ? Yawning. How is this diagnosed? This condition is diagnosed based on: ? A physical exam. ? Your history of opioid use. ? Your symptoms. This includes: ? How opioid use affects your life. ? Changes in personality, behaviors, and mood. ? Having at least two symptoms of opioid use disorder within a 12-month period. ? Health issues related to using opioids. ? Blood or urine tests to screen for drugs. How is this treated? The first goal of treatment is to stop your use of opioids. This must be done safely and may involve taking medicines to lessen withdrawal symptoms. Treatment may also involve: ? Taking part in group and individual counseling from mental health providers who have experience with substance use disorder. ? Staying at a residential treatment center for several days or weeks. ? Attending daily counseling sessions at a treatment center. ? Taking medicines as told by your health care provider that: ? Ease symptoms and prevent complications during withdrawal. ? Block cravings and block the good feeling that you get from using opioids. ? Treat other mental health issues, such as depression or anxiety. ? Reduce agitation. ? Participating in a support group to share your experience with others who are going through the same thing. ? Using opioid maintenance treatment. This involves taking certain kinds of opioid medicines. These medicines satisfy cravings but are safer than opioids that are commonly misused. Recovery can be a long process. Some people who undergo treatment start using opioids again after stopping (relapse). If you relapse, it does not mean that treatment will not work. Follow these instructions at home: Medicines ? Take wjws-hcs-blawtzy and prescription medicines only as told by your health care provider. ? Check with your health care provider before starting any new medicines, herbs, or supplements. General instructions ? Do not use any drugs or alcohol. ? Avoid people and activities that trigger your use of opioids. ? Learn and practice techniques for managing stress. ? Have a plan for vulnerable moments. These are times when you are most likely to relapse. Get phone numbers of those who are willing to help and who are committed to your recovery. ? Attend support groups regularly. These groups provide emotional support, advice, and guidance. ? Keep all follow-up visits. This is important. Follow-up visits include continuing to work with therapists and support groups. Where to find more information ? National [place] on Drug Abuse: drugabuse.gov ? Substance Abuse and Mental Health Services Administration: samhsa.gov ? Narcotics Anonymous: na.org Contact a health care provider if: ? You cannot take your medicines as told. ? Your symptoms get worse. ? You have a relapse. Get help right away if: ? You may have taken too much of an opioid (overdosed). Common symptoms of an overdose include: ? Sleepiness or difficulty waking from sleep. ? Decrease in attention or confusion. ? Slurred speech. ? Slowed breathing and a slow pulse (bradycardia). ? Nausea and vomiting. ? Abnormally small pupils. ? You have serious thoughts about hurting yourself or others. These symptoms may represent a serious problem that is an emergency. Do not wait to see if the symptoms will go away. Get medical help right away. Call your local emergency services (911 in the [place] Do not drive yourself to the hospital. If you were prescribed a drug (naloxone) that reverses the effects of an opioid overdose, a friend,family member, or emergency services provider can administer the drug in an emergency. If you ever feel like you may hurt yourself or others, or have thoughts about taking your own life,get help right away. You can go to your nearest emergency department or call: ? Your local emergency services (911 in the [place] ? A suicide crisis helpline, such as the National Suicide Prevention Lifeline at . Thisis open 24 hours a day. Summary ? Opioid use disorder is a condition in which opioids are used for reasons other than medical care. ? Opioid use disorder can be dangerous. It can lead to various mental and physical problems, and an opioid overdose can be life-threatening. ? The first goal of treatment is to stop your use of opioids. This must be done safely and may involve taking medicines to lessen withdrawal symptoms. This information is not intended to replace advice given to you by your health care provider. Make sure you discuss any questions you have with your health care provider. Document Revised: 08/24/2021 Document Reviewed: 08/24/2021 Elsevier Patient Education ?? 2021 [employer] Abdominal Pain, Adult Pain in the abdomen (abdominal pain) can be caused by many things. Often, abdominal pain is not serious and it gets better with no treatment or by being treated at home. However, sometimes abdominal pain is serious. Your health care provider will ask questions about your medical history and do a physical exam to try to determine the cause of your abdominal pain. Follow these instructions at home: Medicines ? Take ajwu-dce-lhwmqdp and prescription medicines only as told by your health care provider. ? Do not take a laxative unless told by your health care provider. General instructions ? Watch your condition for any changes. ? Drink enough fluid to keep your urine pale yellow. ? Keep all follow-up visits as told by your health care provider. This is important. Contact a health care provider if: ? Your abdominal pain changes or gets worse. ? You are not hungry or you lose weight without trying. ? You are constipated or have diarrhea for more than 2???3 days. ? You have pain when you urinate or have a bowel movement. ? Your abdominal pain wakes you up at night. ? Your pain gets worse with meals, after eating, or with certain foods. ? You are vomiting and cannot keep anything down. ? You have a fever. ? You have blood in your urine. Get help right away if: ? Your pain does not go away as soon as your health care provider told you to expect. ? You cannot stop vomiting. ? Your pain is only in areas of the abdomen, such as the right side or the left lower portion of the abdomen. Pain on the right side could be caused by appendicitis. ? You have bloody or black stools, or stools that look like tar. ? You have severe pain, cramping, or bloating in your abdomen. ? You have signs of dehydration, such as: ? Dark urine, very little urine, or no urine. ? Cracked lips. ? Dry mouth. ? Sunken eyes. ? Sleepiness. ? Weakness. ? You have trouble breathing or chest pain. Summary ? Often, abdominal pain is not serious and it gets better with no treatment or by being treated at home. However, sometimes abdominal pain is serious. ? Watch your condition for any changes. ? Take mxge-leh-mpvcnrl and prescription medicines only as told by your health care provider. ? Contact a health care provider if your abdominal pain changes or gets worse. ? Get help right away if you have severe pain, cramping, or bloating in your abdomen. This information is not intended to replace advice given to you by your health care provider. Make sure you discuss any questions you have with your health care provider. Document Revised: 07/02/2020 Document Reviewed: 09/22/2019 Else[employer] Patient Education ?? 2021 [employer] Tests Performed Lab Test Name Test Result Date/Time U hCG Ql NEGATIVE 08/08/2022 14:33 EDT Patient/Domestic Housekeeper Signature Patient Name:MORRISJOSE I have received this information and my questions have been answered. Patient/Domestic Housekeeper Name: Patient/Domestic Housekeeper Signature: Relationship to Patient: Witness Name/Signature: Date: Electronically Signed on: 08/08/2022 16:44 EDTSigned by:[facility] Emergency department Note * Codi Slade: PERFORM Event Display: ED Notes Authored Date: [id number] * Codi Slade: PERFORM Event Display: ED Notes Authored Date: [id number] * Codi Slade: PERFORM Event Display: ED Notes Authored Date: [id number] Patient Care team information Care Team Personnel Name: Rose Garcia PA-C Position: Physician Member Role: Informed Provider Address: Address: [address] [place] [id number] [place] Name: Simón Boyd RN Position: Nurse Member Role: ED Nurse Name: Sapna Soto MD Position: Physician Member Role: Admitting Physician Address: Address: [address] [place] [id number] [place] Care Team Related Persons Name: LYNDSEY MORRIS Address: Home Name: JESSICA MORRIS Name: JS MORRIS Address: Home
--- OUTSIDE RECORDS SUMMARY | 2022-09-26 22:56 | XMS_ITS | Continuity of Care Document ---
Author Name Unknown Organization [facility] Address [address] [place] [address] Care Team Providers Care Meat Wrapper Name Role Phone Rose Garcia Primary Care Physician Encounter NCTY_DC Date(s): 08/10/22 - 08/11/22 [facility] [address] [place] [address] us Encounter Diagnosis History of command hallucinations(Discharge Diagnosis) - 08/10/22 Personal history of other mental and behavioral disorders(Final) - FPC (current) use of opiate analgesic(Final) - Other custodial (current) drug therapy(Final) - Discharge Disposition: Psychiatric Facility/Unit Attending Physician: Darryl August MD Admitting Physician: Darryl August MD Allergies, Adverse Reactions, Alerts No Known Medication Allergies Substance Reaction Severity Status RAGWEED POLLEN Unknown Active Assessment and Plan Future Appointments Functional Status 08/10/22 Family Member Travel History No recent t ravel Recent Travel History No recent travel Other exposure to Infectious Disease Non e [...] bedtime, # 90 tab, 3 Refill(s), Pharmacy: [facility],152, cm, 08/02/22 9:20:00 EST, Height/Length Dosing, 61, kg, 08/02/22 9:20:00 EST, Weight Dosing Start Date: 08/07/22 Stop Date: 08/02/23 Status: Ordered docusate sodium 100 mg oral capsule 100 mg = 1 cap, Oral, BID, PRN as needed for constipation, # 20 cap, 0 Refill(s) Start Date: 08/10/22 Status: Ordered gabapentin 600 mg oral tablet 600 mg = 1 tab, Oral, 5 times per day, # 150 tab, 11 Refill(s), Pharmacy: [facility], 152.4, cm, 03/24/22 10:01:00 EDT, Height/Length Dosing, 63.5, kg, 03/24/22 10:01:00 EDT, Weight Dosing Start Date: 05/24/22 Stop Date: 05/19/23 Status: Ordered ibuprofen 600 mg oral tablet See Instructions, TAKE ONE TABLET BY MOUTH THREE TIMES A DAY, # 90 tab, 5 Refill(s), Pharmacy: [facility], 152.4, cm, 03/24/22 10:01:00 EDT, Height/Length Dosing, 63.5, kg, 03/24/22 10:01:00 EDT, Weight Dosing Start Date: 05/01/22 Status: Ordered methadone 120 mg =, Oral, Daily, 0 Refill(s) Start Date: 07/09/22 Status: Ordered nicotine 14 mg/24 hr transdermal film, extended release 1 patches, Topical, Daily, # 90 patches, 0 Refill(s), Pharmacy: [facility], 152, cm, 08/02/22 9:20:00 EST, Height/Length Dosing, 61, kg, 08/02/22 9:20:00 EST, Weight Dosing Start Date: 08/07/22 Stop Date: 11/05/22 Status: Ordered ondansetron 4 mg oral tablet, disintegrating See Instructions, DISSOLVE ONE TABLET BY MOUTH THREE TIMES DAILY, # 90 tab, 0 Refill(s), Pharmacy: [facility], 152.4, cm, 03/24/22 10:01:00 EDT, Height/Length Dosing, 63.5, kg, 03/24/22 10:01:00 EDT, Weight Dosing Start Date: 04/16/22 Status: Ordered polyethylene glycol 3350 17 g =, Oral, Daily, For 30 days, 0 Refill(s) Start Date: 10/11/21 Status: Ordered senna 8.6 mg oral tablet 17.2 mg = 2 tab, Oral, every night at bedtime, 0 Refill(s) Start Date: 08/10/22 Status: Ordered SEROquel 25 mg =, Oral, every night at bedtime, 0 Refill(s) Start Date: 08/02/22 Status: Ordered sertraline 25 mg oral tablet 25 mg = 1 tab, Oral, every 4 hr, not to exceed 2 tabs in 24 hours, 0 Refill(s) Start Date: 08/10/22 Status: Ordered Problem List Condition Confirmation Course [...] disorder Confirmed Active 1From 07-17-2020 visit: 07/08/2020 [facility]'s Rose Garcia PA-C hopes that she will get her Disability determination due to her mental health and orthopedic problems. This would help with her housing insecurity and make social determinants of health less of a problem for her. 2From 03-06-2021 visit: 03/03/2021 Worsening. Patient will discuss her sleep problems with Amparo Lema, freight associate. 3From 03-26-2018 visit: 03/26/2018 Onto Celebrex. Also [...] 5From 10-05-2019 visit: doing well at [facility] on methadone. 6From 06-08-2021 visit: 03/03/2021 Stable. Patient currently taking cyclobenzaprine 10 mg at bedtime because of knots on theleft knee. 07/08/2020 Worsening. Ok at half to one of Cyclobenzaprine every night. She has a year supply. 06/17/2020 Patient will work with Barby lee: the gabapentin. Barby is ok with 600mg QID. Their office will reach out. We will send in promethazine. We will cancel the Cyclobenzaprine refills. Procedures Procedure Date Related Diagnosis Body Site Status Orthopedic surgery 1 11/22/11 Comp leted 1knee arthroscopy with anterior cruciate ligament reconstruction. (See full report) Results Laboratory List Name Date Acetaminophen Level 08/10/22 Alcohol Level 08/10/22 CBC w/ Diff 08/10/22 Comprehensive Metabolic Panel (CMP) 08/10 Salicylate Level 08/10/22 Thyroid Stimulating Hormone (TSH) 3 Drug Screen Urine 08/10/22 Automated Diff 08/10/22 Test Urine Qual 08/10/22 Urinalysis with Micro if Indicated and C ulture if Indicated 08/10/22 Most recent to oldest [Reference Range]: 1 WBC [5.0-10.0 x10^3/mcL] 7.3 x10^3/mcL (08/10/22 12:59 PM) RBC [4.1-5.3 x10^6/mcL] 4.1 x10^6/mcL (08/10/22 12:59 PM) Neutro Auto [40.0-75.0 %] 57.0 % (08/10/22 12:59 PM) Lymph Auto [20.0-50.0 %] 36.9 % (08/10/22:59 PM) Slope Auto [2.0-15.0 %] 4.9 % (08/10/22 12:59 PM) Basophil Auto [0.0-1.0 %] 0.4 % (08/10/22:59 PM) BUN [7-18 mg/dL] 7 mg/dL (08/10/22:59 PM) U Amph Scrn [Negative] Negative (08/10/22:56 PM) UA Color Pale Yellow (08/10/22:39 PM) Glucose Level [74-106 mg/dL] 129 mg/dL *HI* (08/10/22:59 PM) Potassium Level [3.5-5.1 mmol/L] 3.6 mmo l/L (08/10/22:59 PM) U Benzodia Scrn [Negative] Negative (08/10/22:56 PM) MCV [80.0-96.0] 93.2 (08/10/22:59 PM) UA Urobilinogen Normal (08/10/22 12:39 PM) UA Bili [Negative] Negative (08/10/22:39 PM) UA Ketones Negative (08/10/22: PM) AST [15-37 unit/L] 21 unit/L (08/10/22:59 PM) ALT [14-59 unit/L] 16 unit/L (08/10/22:59 PM) MCHC [31.0-35.0 g/dL] 32.9 g/dL (08/10/22:59 PM) Sodium Level [136-145 mmol/L] 139 mmol/L (08/10/22 12:59 PM) UA Leuk Est Negative (08/10/22 12:39 PM) UA Nitrite Negative (08/10/22:39 PM) UA Glucose [Negative] Negative (08/10/22 12:39 PM) Hct [37.0-47.0 %] 38.3 % (08/10/22:59 PM) U Cocaine Scrn [Negative] Negative (08/10/22 12:56 PM) Calcium Level [8.5-10.1 mg/dL] 9.3 mg/dL (08/10/22 12:59 PM) Albumin Level [3.4-5.0 g/dL] 3.9 g/dL (08/10/22 12:59 PM) Protein Total [6.4-8.2 g/dL] 7.3 g/dL (08/10/22 12:59 PM) UA Protein Negative (08/10/22 12:39 PM) MCH [26.0-32.0 pg] 30.7 pg (08/10/22 12:59 PM) Neutro Absolute 4.2 x10^3/mcL *NA* (08/10/22 12:59 PM) Bilirubin Total [0.2-1.0 mg/dL] 0.1 mg/d L *LOW* (08/10/22 12:59 PM) Hgb [12.0-16.0 g/dL] 12.6 g/dL (08/10/22 12:59 PM) Alk Phos [46-146 unit/L] 68 unit/L (08/10/22 12:59 PM) UA Blood Negative (08/10/22 12:39 PM) Salicylate Level [2.8-20.0 mg/dL] 3.9 mg /dL (08/10/22 12:59 PM) Ethanol Level [0-10 mg/dL] <5 mg/dL (08/10/22 12:59 PM) UA Spec Grav <=1.005 *NA* (08/10/22 12:39 PM) Platelets [130-450 x10^3/mcL] 261 x10^3/ mcL (08/10/22 12:59 PM) CO2 [21-32 mmol/L] 28 mmol/L (08/10/22 12:59 PM) U Anjana Scrn [Negative] Negative (08/10/22 12:56 PM) TSH [0.358-3.740 mcIntlUnit/mL] 1.360 mc IntlUnit/mL (08/10/22 12:59 PM) UA pH 7.0 *NA* (08/10/22 12:39 PM) U Opiate Scrn [Negative] Negative (08/10/22 12:56 PM) eGFR Non-AA [>=60] 98 (08/10/22 12:59 PM) eGFR AA [>=60] 98 (08/10/22 12:59 PM) UA Appear Clear (08/10/22 12:39 PM) Acetaminophen Level [10-20 ug/mL] <10 ug /mL *LOW* (08/10/22 12:59 PM) Chloride Level [98-107 mmol/L] 101 mmol/ L (08/10/22 12:59 PM) U Oxy Scrn [Negative] Negative (08/10/22 12:56 PM) U PCP Scrn [Negative] Negative (08/10/22 12:56 PM) RDW-CV [11.7-17.0 %] 12.5 % (08/10/22 12:59 PM) U THC Scr [Negative] Positive *ABN* (08/10/22 12:56 PM) U PPX Scr [Negative] Negative (08/10/22 12:56 PM) U Methadone Scr [Negative] Positive *ABN* (08/10/22 12:56 PM) Imm Gran Auto [0.0-0.9 %] 0.1 % (08/10/22 12:59 PM) U Buprenorph Scr [Negative] Negative (08/10/22 12:56 PM) U mAMP Scr [Negative] Negative (08/10/22 12:56 PM) U TCA Scr [Negative] Negative (08/10/22 12:56 PM) Creatinine Level [0.55-1.02 mg/dL] 0.79 mg/dL (08/10/22 12:59 PM) Eos, Auto [1.0-6.0 %] 0.7 % *LOW* (08/10/22 12:59 PM) U hCG Ql Negative (08/10/22 12:39 PM) Vital Signs Most recent to oldest [Reference Range]: 1 Temperature Temporal Artery [36-38 Deg C ] 37.8 Deg C (08/10/22 11:57 AM) Peripheral Pulse Rate [60-100 bpm] 108 b pm *HI* (08/10/22 11:57 AM) Respiratory Rate [12-24 br/min] 24 br/mi n (08/10/22 11:57 AM) Blood Pressure [90-140/60-90 mmHg] 121/9 8mmHg (08/10/22 11:57 AM) Weight Dosing 54.40 kg (08/10/22 12:06 PM) Weight Estimated 54.40 kg (08/10/22 11:57 AM) Height/Length Dosing 152.400 cm (08/10/22 12:06 PM) Height/Length Estimated 152.400 cm (08/10/22 11:57 AM) Social History Social History Type Response Smoking Status Smoking tobacco use: Never tobacco user; Smoking tobacco use: Current some day tobacco user;Never 1 entered on: 08/10/22 Sex Female 1most recent tobacco screenin09-01-2021 Pharmacology Progress note * Heather Goyal PharmD: PERFORM Event Display: Pharmacy Progress Note Authored Date: [id number] Pharmacy Progress Note Med Rec updated with [facility] in [place]. Still need to verify methadone dosage ([facility] closed 08/10 @14:36 - will call again tomorrow morning) Electronically Signed on 08/10/22 04:06 PM Heather Goyal PharmD * Heather Goyal PharmD: PERFORM Event Display: Pharmacy Progress Note Authored Date: [id number] Methadone dose verified with [facility] as 115mg per day. Last dose received from them was 08/10/22 in the morning Electronically Signed on 08/11/22 08:33 AM Heather Goyal PharmD Physician Emergency department Note * Maria De Jesus East MD: PERFORM Event Display: ED Note Physician Authored Date: [id number] JOSE MORRIS :1985 Age:37 years Sex:Female Visit Date:08/10/2022 Primary Care Physician: Rose Garcia PA-C ED Supervision/Handoff Note: No event o/n, pt for transfer to [facility] this morning History Of Present Illness: No event overnight. Patent for transfer to [facility] this morning Medical Decision Making: Vitals & Measurements T:??37.8?C ??(Temporal Artery)?? HR:??108??(Peripheral)?? RR:??24?? BP:??121/98?? SpO2:??97%?? HT:??152.400??cm?? WT:??54.40??kg??(Estimated)?? Pain Score:??7?? O2 Therapy:??Room air?? Procedure No Qualifying Data Lab Results CBC and Differential?? LATEST RESULTS?? HISTORICAL RESULTS?? WBC?? 08/10/22 12:59?? 7.3?? 07/09/22?? 8.6?? RBC?? 08/10/22 12:59?? 4.1?? 07/09/22?? 4.2?? Hgb?? 08/10/22 12:59?? 12.6?? 07/09/22?? 13.0?? Hct?? 08/10/22 12:59?? 38.3?? 07/09/22?? 38.5?? MCV?? 08/10/22 12:59?? 93.2?? 07/09/22?? 91.7?? MCH?? 08/10/22 12:59?? 30.7?? 07/09/22?? 31.0?? MCHC?? 08/10/22 12:59?? 32.9?? 07/09/22?? 33.8?? RDW-CV?? 08/10/22 12:59?? 12.5?? 07/09/22?? 12.5?? Platelets?? 08/10/22 12:59?? 261?? 07/09/22?? 294?? Neutro Auto?? 08/10/22 12:59?? 57.0?? 07/09/22?? 55.2?? Lymph Auto?? 08/10/22 12:59?? 36.9?? 07/09/22?? 36.9?? Slope Auto?? 08/10/22 12:59?? 4.9?? 07/09/22?? 6.4?? Eos, Auto?? 08/10/22 12:59?? 0.7 ??Low?? 07/09/22?? 0.5 ??Low?? Basophil Auto?? 08/10/22 12:59?? 0.4?? 07/09/22?? 0.7?? Imm Gran Auto?? 08/10/22 12:59?? 0.1?? 07/09/22?? 0.3?? Neutro Absolute?? 08/10/22 12:59?? 4.2?? 07/09/22?? 4.7? Routine Chemistry?? LATEST RESULTS?? HISTORICAL RESULTS?? Sodium Level?? 08/10/22 12:59?? 139?? 07/09/22?? 136?? Potassium Level?? 08/10/22 12:59?? 3.6?? 07/09/22?? 3.7?? Chloride Level?? 08/10/22 12:59?? 101?? 07/09/22?? 98?? CO2?? 08/10/22 12:59?? 28?? 07/09/22?? 26?? Alk Phos?? 08/10/22 12:59?? 68?? 07/09/22?? 80?? AST?? 08/10/22 12:59?? 21?? 07/09/22?? 20?? ALT?? 08/10/22 12:59?? 16?? 07/09/22?? 19?? BUN?? 08/10/22 12:59?? 7?? 07/09/22?? 9?? Glucose Level?? 08/10/22 12:59?? 129 ??High?? 07/09/22?? 80?? Creatinine Level?? 08/10/22 12:59?? 0.79?? 07/09/22?? 0.99?? eGFR AA?? 08/10/22 12:59?? 98?? 07/09/22?? 75?? eGFR Non-AA?? 08/10/22 12:59?? 98?? 07/09/22?? 75?? Calcium Level?? 08/10/22 12:59?? 9.3?? 07/09/22?? 9.7?? Protein Total?? 08/10/22 12:59?? 7.3?? 07/09/22?? 8.1?? Albumin Level?? 08/10/22 12:59?? 3.9?? 07/09/22?? 4.6?? Bilirubin Total?? 08/10/22 12:59?? 0.1 ??Low?? 07/09/22?? 0.2? Testing?? LATEST RESULTS?? HISTORICAL RESULTS?? U hCG Ql?? 08/10/22 12:39?? Negative?? 08/08/22?? Negative? Thyroid Studies?? LATEST RESULTS?? TSH?? 08/10/22 12:59?? 1.360? Serum Toxicology?? LATEST RESULTS?? HISTORICAL RESULTS?? Acetaminophen Level?? 08/10/22 12:59?? <10 ??Low?? 07/09/22?? <10 ??Low?? Salicylate Level?? 08/10/22 12:59?? 3.9?? 07/09/22?? 6.3?? Ethanol Level?? 08/10/22 12:59?? <5?? 07/09/22?? <5? Urine Toxicology?? LATEST RESULTS?? HISTORICAL RESULTS?? U Amph Scrn?? 08/10/22 12:56?? Negative?? 07/09/22?? Negative?? U Anjana Scrn?? 08/10/22 12:56?? Negative?? 07/09/22?? Negative?? U Benzodia Scrn?? 08/10/22 12:56?? Negative?? 07/09/22?? Negative?? U Buprenorph Scr?? 08/10/22 12:56?? Negative?? 07/09/22?? Negative?? U Cocaine Scrn?? 03/16/23 12:56?? Negative?? 07/09/22?? Negative?? U TCA Scr?? 08/10/22 12:56?? Negative?? 07/09/22?? Negative?? U THC Scr?? 08/10/22 12:56?? Positive Abnormal?? 07/09/22?? Positive Abnormal?? U mAMP Scr?? 08/10/22 12:56?? Negative?? 07/09/22?? Negative?? U Methadone Scr?? 08/10/22 12:56?? Positive Abnormal?? 07/09/22?? Positive Abnormal?? U Opiate Scrn?? 08/10/22 12:56?? Negative?? 07/09/22?? Negative?? U Oxy Scrn?? 08/10/22 12:56?? Negative?? 07/09/22?? Negative?? U PCP Scrn?? 08/10/22 12:56?? Negative?? 07/09/22?? Negative?? U PPX Scr?? 08/10/22 12:56?? Negative?? 07/09/22?? Negative? UA Macroscopic?? LATEST RESULTS?? HISTORICAL RESULTS?? UA Color?? 08/10/22 12:39?? Pale Yellow?? 08/02/22?? Pale Yellow?? UA Appear?? 08/10/22 12:39?? Clear?? 08/02/22?? Clear?? UA Glucose?? 08/10/22 12:39?? Negative?? 08/02/22?? Negative?? UA Bili?? 08/10/22 12:39?? Negative?? 08/02/22?? Negative?? UA Ketones?? 08/10/22 12:39?? Negative?? 08/02/22?? Trace Abnormal?? UA Spec Grav?? 08/10/22 12:39?? <=1.005?? 08/02/22?? <=1.005?? UA Blood?? 08/10/22 12:39?? Negative?? 08/02/22?? Negative?? UA pH?? 08/10/22 12:39?? 7.0?? 08/02/22?? 6.0?? UA Protein?? 08/10/22 12:39?? Negative?? 08/02/22?? Negative?? UA Urobilinogen?? 08/10/22 12:39?? Normal?? 08/02/22?? Normal?? UA Nitrite?? 08/10/22 12:39?? Negative?? 08/02/22?? Negative?? UA Leuk Est?? 08/10/22 12:39?? Negative?? 08/02/22?? Negative? Assessment/Plan 1.??History of command hallucinations??Z86.59 Electronically Signed on 08/11/22 08:22 AM Maria De Jesus East MD * Bhavna Vasquez: PERFORM Event Display: ED Note Physician Authored Date: [id number] * Brad Jimenez MD: PERFORM, MODIFY, MODIFY Event Display: ED Note Physician Authored Date: [id number] JOSE MORRIS :1985 Age:37 years Sex:Female Visit Date:08/10/2022 Primary Care Physician: Rose Garcia PA-C Basic Information Time Seen: Brad Jimenez MD / 08/10/2022 13:27 Chief Complaint I'm hearing auditory voices and they're telling me they are going to hurt ??me Pt presents with [facility] staff. voices telling pt to hurt herself. No HI. Pt tearful in triage, reporting nightmares and possible seizure. abd pain tampon stuck inside me History Of Present Illness: 37-year-old female comes with [facility]??for psychiatric evaluation. ??The patient states that she is voices that??are telling her to hurt herself. ??She is having some voice commands.?? No reported overdose??or self-inflicted injury.?? But she is concerned that she may have a retained tampon because she has had some pelvic cramping.?? Patient was here couple days ago and evaluated also. ??No other??complaints. ??According to?? [facility], the patient??had a family member that came back from [place] recently and she is concerned that??the house, he implanted something on her to control her thoughts. ?? Reports she gets methadone from the [facility] at 150 mg daily. Review of Systems: Constitutional:??no??fever,? Skin:??no??Jaundice,??no??rash, ENMT:??no??ear pain,??no??sore throat,??no??congestion,??no??hoarseness Respiratory:??no??shortness of breath,??no??cough,? Cardiovascular:??no??chest pain,? Gastro intestinal:??no??nausea,??no??vomiting,? Genitourinary:??Sometimes vaginal discharge in the morning Musculoskeletal:??no??back pain,??no??trauma Neurologic:??no??headache,??no??dizziness,??no??numbness,??no??weakness Psychiatric:??The HPI ?? Physical Exam Vitals & Measurements T:??37.8?C ??(Temporal Artery)?? HR:??108??(Peripheral)?? RR:??24?? BP:??121/98?? SpO2:??97%?? HT:??152.400??cm?? WT:??54.40??kg??(Estimated)?? Pain Score:??7?? O2 Therapy:??Room air?? General:??alert,??no acute distress.?? Here the patient does not appear to be psychotic??and appears to have insight.?? Speaks normally. Skin:??warm,??dry. Head:??no??trauma,??normocephalic. Neck:??trachea??midline,??no??adenopathy,??no??tenderness. Eye:??normal??conjunctiva, sclera??clear. Cardiovascular:??regular??rate and rhythm,??normal??peripheral perfusion. Respiratory: lungs??CTA, respirations??non-labored. Chest wall:??no??deformity. Gastrointestinal:??soft,??non distended,??no??tenderness,??no??guarding. Extremities:??no??deformity,??no??trauma. Neurological:??oriented??x 4, LOC??appropriate for age,?? , speech??normal. Psychiatric:??cooperative,??no pressured of speech, interacts appropriately,??although she reports some command hallucinations,??she is able to recognize??it as a??psychosis. Medical Decision Making: Medical Decision-Making: Clinical lab tests: ordered and reviewed -??Yes ?? Review and summarize past medical records -??Yes ?? The patient was medically cleared and spoke with mental health we will arrange for her to be here on a voluntary basis for psych admit. ?? Patient is stable and cooperative with me here.?? With RN present we will consider doing a vaginal exam to make sure she does not have??a retained tampon which she is concerned of.?? Labs unremarkable here??separate drug screen positive for THC and methadone.?? No signs of withdrawal here. ?? 6:50 PM: I had a doc to doc??discussion with Dr. Zuleyka Harris psychiatrist of the [facility].?? She reports that the patient will be accepted tomorrow and we should wait for admissions tomorrow??to know who would be the official accepting physician. ?? Procedure No Qualifying Data Medication Reconciliation Unchanged cyclobenzaprine (cyclobenzaprine 10 mg oral tablet)1 tab Oral (given by mouth) every night at bedtime for 90 Days. Refills: 3. ?? docusate (docusate sodium 100 mg oral capsule)1 Capsules Oral (given by mouth) 2 times a day as needed as needed for constipation. ?? gabapentin (gabapentin 600 mg oral tablet)1 tab Oral (given by mouth) 5 times per day for 30 Days. Refills: 11. ?? ibuprofen (ibuprofen 600 mg oral tablet)TAKE ONE TABLET BY MOUTH THREE TIMES A DAY. Refills: 5. ?? [id number] Milligrams Oral (given by mouth) every day. ?? nicotine (nicotine 14 mg/24 hr transdermal film, extended release)1 patch(es) Topical (on the skin)every day for 90 Days. Refills: 0. ?? ondansetron (ondansetron 4 mg oral tablet, disintegrating)DISSOLVE ONE TABLET BY MOUTH THREE TIMES DAILY. Refills: 0. ?? polyethylene glycol [id number] Gram Oral (given by mouth) every day. For 30 days. ?? QUEtiapine (SEROquel)25 Milligrams Oral (given by mouth) every night at bedtime. ?? senna (senna 8.6 mg oral tablet)2 tab Oral (given by mouth) every night at bedtime. ?? sertraline (sertraline 25 mg oral tablet)1 tab Oral (given by mouth) every 4 hours. not to exceed 2tabs in 24 hours. ?? Discontinued fluticasone nasal (fluticasone 50 mcg/inh nasal spray)2 Sprays Nasal (into the nose) every day. For30 days. Problem List/Past Medical History Ongoing Anxiety [...] 120 mg po daily Tobacco Never tobacco user, Current some day tobacco user Tobacco Use:. Never Smokeless Tobacco use:.- Comments: most recent tobacco screenin09-01-2021 Family History Breast cancer: Mother. Hypertension: Father. Malignant tumor of lung: Negative: Mother, Father, Grandfather (M), Grandfather (P), Grandmother (M) and Grandmother (P). Migraine: Mother. PsA (Psoriatic arthritis): Father. Lab Results CBC and Differential?? LATEST RESULTS?? HISTORICAL RESULTS?? WBC?? 08/10/22 12:59?? 7.3?? 07/09/22?? 8.6?? RBC?? 08/10/22 12:59?? 4.1?? 07/09/22?? 4.2?? Hgb?? 08/10/22 12:59?? 12.6?? 07/09/22?? 13.0?? Hct?? 08/10/22 12:59?? 38.3?? 07/09/22?? 38.5?? MCV?? 08/10/22 12:59?? 93.2?? 07/09/22?? 91.7?? MCH?? 08/10/22 12:59?? 30.7?? 07/09/22?? 31.0?? MCHC?? 08/10/22 12:59?? 32.9?? 07/09/22?? 33.8?? RDW-CV?? 08/10/22 12:59?? 12.5?? 07/09/22?? 12.5?? Platelets?? 08/10/22 12:59?? 261?? 07/09/22?? 294?? Neutro Auto?? 08/10/22 12:59?? 57.0?? 07/09/22?? 55.2?? Lymph Auto?? 08/10/22 12:59?? 36.9?? 07/09/22?? 36.9?? Slope Auto?? 08/10/22 12:59?? 4.9?? 07/09/22?? 6.4?? Eos, Auto?? 08/10/22 12:59?? 0.7 ??Low?? 07/09/22?? 0.5 ??Low?? Basophil Auto?? 08/10/22 12:59?? 0.4?? 07/09/22?? 0.7?? Imm Gran Auto?? 08/10/22 12:59?? 0.1?? 07/09/22?? 0.3?? Neutro Absolute?? 08/10/22 12:59?? 4.2?? 07/09/22?? 4.7? Routine Chemistry?? LATEST RESULTS?? HISTORICAL RESULTS?? Sodium Level?? 08/10/22 12:59?? 139?? 07/09/22?? 136?? Potassium Level?? 08/10/22 12:59?? 3.6?? 07/09/22?? 3.7?? Chloride Level?? 08/10/22 12:59?? 101?? 07/09/22?? 98?? CO2?? 08/10/22 12:59?? 28?? 07/09/22?? 26?? Alk Phos?? 08/10/22 12:59?? 68?? 07/09/22?? 80?? AST?? 08/10/22 12:59?? 21?? 07/09/22?? 20?? ALT?? 08/10/22 12:59?? 16?? 07/09/22?? 19?? BUN?? 08/10/22 12:59?? 7?? 07/09/22?? 9?? Glucose Level?? 08/10/22 12:59?? 129 ??High?? 07/09/22?? 80?? Creatinine Level?? 08/10/22 12:59?? 0.79?? 07/09/22?? 0.99?? eGFR AA?? 08/10/22 12:59?? 98?? 07/09/22?? 75?? eGFR Non-AA?? 08/10/22 12:59?? 98?? 07/09/22?? 75?? Calcium Level?? 08/10/22 12:59?? 9.3?? 07/09/22?? 9.7?? Protein Total?? 08/10/22 12:59?? 7.3?? 07/09/22?? 8.1?? Albumin Level?? 08/10/22 12:59?? 3.9?? 07/09/22?? 4.6?? Bilirubin Total?? 08/10/22 12:59?? 0.1 ??Low?? 07/09/22?? 0.2? Testing?? LATEST RESULTS?? HISTORICAL RESULTS?? U hCG Ql?? 08/10/22 12:39?? Negative?? 08/08/22?? Negative? Thyroid Studies?? LATEST RESULTS?? TSH?? 08/10/22 12:59?? 1.360? Serum Toxicology?? LATEST RESULTS?? HISTORICAL RESULTS?? Acetaminophen Level?? 08/10/22 12:59?? <10 ??Low?? 07/09/22?? <10 ??Low?? Salicylate Level?? 08/10/22 12:59?? 3.9?? 07/09/22?? 6.3?? Ethanol Level?? 08/10/22 12:59?? <5?? 07/09/22?? <5? Urine Toxicology?? LATEST RESULTS?? HISTORICAL RESULTS?? U Amph Scrn?? 08/10/22 12:56?? Negative?? 07/09/22?? Negative?? U Anjana Scrn?? 08/10/22 12:56?? Negative?? 07/09/22?? Negative?? U Benzodia Scrn?? 08/10/22 12:56?? Negative?? 07/09/22?? Negative?? U Buprenorph Scr?? 08/10/22 12:56?? Negative?? 07/09/22?? Negative?? U Cocaine Scrn?? 08/10/22 12:56?? Negative?? 07/09/22?? Negative?? U TCA Scr?? 08/10/22 12:56?? Negative?? 07/09/22?? Negative?? U THC Scr?? 08/10/22 12:56?? Positive Abnormal?? 07/09/22?? Positive Abnormal?? U mAMP Scr?? 08/10/22 12:56?? Negative?? 07/09/22?? Negative?? U Methadone Scr?? 08/10/22 12:56?? Positive Abnormal?? 07/09/22?? Positive Abnormal?? U Opiate Scrn?? 08/10/22 12:56?? Negative?? 07/09/22?? Negative?? U Oxy Scrn?? 08/10/22 12:56?? Negative?? 07/09/22?? Negative?? U PCP Scrn?? 08/10/22 12:56?? Negative?? 07/09/22?? Negative?? U PPX Scr?? 08/10/22 12:56?? Negative?? 07/09/22?? Negative? UA Macroscopic?? LATEST RESULTS?? HISTORICAL RESULTS?? UA Color?? 08/10/22 12:39?? Pale Yellow?? 08/02/22?? Pale Yellow?? UA Appear?? 08/10/22 12:39?? Clear?? 08/02/22?? Clear?? UA Glucose?? 08/10/22 12:39?? Negative?? 08/02/22?? Negative?? UA Bili?? 08/10/22 12:39?? Negative?? 08/02/22?? Negative?? UA Ketones?? 08/10/22 12:39?? Negative?? 08/02/22?? Trace Abnormal?? UA Spec Grav?? 08/10/22 12:39?? <=1.005?? 08/02/22?? <=1.005?? UA Blood?? 08/10/22 12:39?? Negative?? 08/02/22?? Negative?? UA pH?? 08/10/22 12:39?? 7.0?? 08/02/22?? 6.0?? UA Protein?? 08/10/22 12:39?? Negative?? 08/02/22?? Negative?? UA Urobilinogen?? 08/10/22 12:39?? Normal?? 08/02/22?? Normal?? UA Nitrite?? 08/10/22 12:39?? Negative?? 08/02/22?? Negative?? UA Leuk Est?? 08/10/22 12:39?? Negative?? 08/02/22?? Negative? Electronically Signed on 08/10/22 04:54 PM Brad Jimenez MD Electronically Signed on 08/10/22 06:39 PM Brad Jimenez MD Electronically Signed on 08/10/22 06:53 PM Brad Jimenez MD Emergency department Note * Bhavna Vasquez: PERFORM Event Display: ED Notes Authored Date: [id number] * Bhavna Vasquez: PERFORM Event Display: ED Notes Authored Date: [id number] * Bhavna Vasquez: PERFORM Event Display: ED Notes Authored Date: [id number] Patient Care team information Care Team Personnel Name: Rose Garcia PA-C Position: Physician Member Role: Informed Provider Address: Address: [address] [place] [id number] Name: Brad Jimenez MD Position: Physician Member Role: ED Physician Address: Address: [address] [place] [address] Name: Ruben Hayward RN Position: Nurse Member Role: ED Nurse Care Team Related Persons Name: LYNDSEY MORRIS Address: Home Name: JESSICA MORRIS Name: JS MORRIS Address: Home
--- OUTSIDE RECORDS SUMMARY | 2022-09-26 22:56 | XMS_ITS | Continuity of Care Document ---
Author Name Unknown Organization [facility] Address [address] [place] [address] Care Team Providers Care Corn Miller Name Role Phone Rose Garcia Primary Care Physician [phone] Encounter [facility] Date(s): 03/23/22 - 03/23/22 [facility] [address] [place] [address] Encounter Diagnosis Nausea and vomiting(Discharge Diagnosis) - 03/23/22 Dental abscess(Discharge Diagnosis) - 03/23/22 Discharge Disposition: Home or Self Care Attending Physician: Sapna Soto MD Admitting Physician: Sapna Soto MD Allergies, Adverse Reactions, Alerts No Known Medication Allergies Substance Reaction Severity Status RAGWEED POLLEN Unknown Active Assessment and Plan Extracted from: Title:Clinical Document Author:Bhavna Vasquez Date :03/23/22 Diagnosis: 1. Nausea and vom iting Comment: Diagnosis: 2. Dental abscess Comment: Diagnosis: Nausea Comment: Diagnosis: Pain in tooth Comment: Future Appointments Functional Status 03/23/22 Family Member Travel History No recent t [...] = 1 tab, Oral, every night at bedtime Start Date: 06/08/21 Status: Ordered fluticasone 50 mcg/inh nasal spray 2 sprays, Nasal, Daily, For 30 days, 0 Refill(s) Start Date: 10/11/21 Status: Ordered gabapentin 600 mg oral tablet 600 mg = 1 tab, Oral, 5 times per day, # 150 tab, 1 Refill(s), Pharmacy: [id number] Start Date: 03/21/22 Stop Date: 05/20/22 Status: Ordered ibuprofen 600 mg oral tablet 1 tab, Oral, TID, 0 Refill(s) Start Date: 10/11/21 Status: Ordered methadone 105 mg =, Daily, 0 Refill(s) Start Date: 10/11/21 Status: Ordered ondansetron 4 mg oral tablet, disintegrating 1 tab, Oral, TID, 0 Refill(s) Start Date: 10/11/21 Status: Ordered polyethylene glycol 3350 17 g =, Oral, Daily, For 30 days, 0 Refill(s) Start Date: 10/11/21 Status: Ordered prochlorperazine 10 mg oral tablet 10 mg = 1 tab, Oral, every 6 hr, PRN nausea, # 15 tab, 0 Refill(s), Pharmacy: [id number], cm, 03/23/22 9:56:00 EDT, Height/Length Dosing, 63.5, kg, 03/23/22 9:56:00 EDT, Weight Dosing Start Date: 03/23/22 Stop Date: 04/02/22 Status: Ordered Problem List Condition Confirmation Course Effective Dates Status H ealth Status Informant Adjustment disorder with anxious mood Confirmed Active Allergic rhinitis Confirmed Active Attention deficit hyperactivity disorder Confirmed Active Developmental academic disorder Confirmed Active Housing problem 1 Confirmed Active Insomnia 2 Confirmed Active Nausea and vomiting 3 Confirmed Active Obstructive sleep apnea syndrome Confirmed Active Osteoarthritis 4 Confirmed 03/26/18 Active pain of left knee 5 Confirmed Active Psychoactive substance abuse 6 Confirmed Active Spasm 7 Confirmed 07/17/20 Active Specific reading disorder Confirmed Active 1From 07-17-2020 visit: 07/08/2020 [facility] [place]'gretel Fosterismael JUAN hopes that she will get her Disability determination due to her mental health and orthopedic problems. This would help with her housing insecurity and make social determinants of health less of a problem for her. 2From 03-06-2021 visit: 03/03/2021 Worsening. Patient will discuss her sleep problems with Amparo Lema, gifted teacher. 3From 08-31-2020 visit: 07/08/2020 Stable. 06/17/2020 Patient will work with Barby Lema re: the gabapentin. Barby is ok with 600mg QID. Their office will reach out. We will send in promethazine. 08/26/2020 We will try to get Zofran for her. 4From 03-26-2018 visit: 03/26/2018 Onto Celebrex. Also started Omeprazole because she is vomiting. 5From 06-18-2020 visit: Had surgery on the knee after severe ski accident, but knee stability, arthritis led to chronic pain. 04/30/2019 Patient stopped her tramadol and the gabapentin is ok at 600mg FIVE times a day. 2019 We will allow Gabapentin 600mg SIX times a day. 02/19/2020 Sees [facility] for methadone and remains on [...] promethazine. We will cancel the Cyclobenzaprine refills. 6From 10-05-2019 visit: doing well at [facility] on methadone. 7From 06-08-2021 visit: 03/03/2021 Stable. Patient currently taking [...] anterior cruciate ligament reconstruction. (See full report) Vital Signs Most recent to oldest [Reference Range]: 1 Temperature Temporal Artery [36-38 Deg C ] 36.5 Deg C (03/23/22 9:47 AM) Peripheral Pulse Rate [60-100 bpm] 101 b pm *HI* (03/23/22 9:47 AM) Respiratory Rate [12-24 br/min] 17 br/mi n (03/23/22 9:47 AM) Blood Pressure [90-140/60-90 mmHg] 112/8 3mmHg (03/23/22 9:47 AM) Weight Dosing 63.50 kg (03/23/22 9:56 AM) Weight Estimated 63.50 kg (03/23/22 9:47 AM) Height/Length Dosing 154.200 cm (03/23/22 9:56 AM) Height/Length Estimated 154.200 cm (03/23/22 9:47 AM) Social History Social History Type Response Smoking Status Smoking tobacco use: Never tobacco user;Never 1 entered on: 10/11/21 Sex Female 1most recent tobacco screenin09-01-2021 Hospital Discharge Instructions Patient Education 03/23/2022 09:16:45 Dental Abscess Dental Abscess A dental abscess is an infection around a tooth that may involve pain, swelling, and a collection of pus, as well as other symptoms. Treatment is important to help with symptoms and to prevent the infection from spreading. The general types of dental abscesses are: ??? Pulpal abscess. This abscess may form from the inner part of the tooth (pulp). ??? Periodontal abscess. This abscess may form from the gum. What are the causes? This condition is caused by a bacterial infection in or around the tooth. It may result from: ??? Severe tooth decay (cavities). ??? Trauma to the tooth, such as a broken or chipped tooth. What increases the risk? This condition is more likely to develop in males. It is also more likely to develop in people who: ??? Have cavities. ??? Have severe gum disease. ??? Eat sugary snacks between meals. ??? Use tobacco products. ??? Have diabetes. ??? Have a weakened disease-fighting system (immune system). ??? Do not brush and care for their teeth regularly. What are the signs or symptoms? Mild symptoms of this condition include: ??? Tenderness. ??? Bad breath. ??? Fever. ??? A bitter taste in the mouth. ??? Pain in and around the infected tooth. Moderate symptoms of this condition include: ??? Swollen neck glands. ??? Chills. ??? Pus drainage. ??? Swelling and redness around the infected tooth, in the mouth, or in the face. ??? Severe pain in and around the infected tooth. Severe symptoms of this condition include: ??? Difficulty swallowing. ??? Difficulty opening the mouth. ??? Nausea. ??? Vomiting. How is this diagnosed? This condition is diagnosed based on: ??? Your symptoms and your medical and dental history. ??? An examination of the infected tooth. During the exam, your dental care provider may tap on theinfected tooth. You may also need to have X-rays taken of the affected area. How is this treated? This condition is treated by getting rid of the infection. This may be done with: ??? Antibiotic medicines. These may be used in certain situations. ??? Antibacterial mouth rinse. ??? Incision and drainage. This procedure is done by making an incision in the abscess to drain outthe pus. Removing pus is the first priority in treating an abscess. ??? A root canal. This may be performed to save the tooth. Your dental care provider accesses the visible part of your tooth (crown) with a drill and removes any infected pulp. Then the space is filled and sealed off. ??? Tooth extraction. The tooth is pulled out if it cannot be saved by other treatment. You may also receive treatment for pain, such as: ??? Acetaminophen or NSAIDs. ??? Gels that contain a numbing medicine. ??? An injection to block the pain near your nerve. Follow these instructions at home: Medicines ??? Take pegz-rdc-xreewgi and prescription medicines only as told by your dental care provider. ??? If you were prescribed an antibiotic, take it as told by your dental care provider. Do not stoptaking the antibiotic even if you start to feel better. ??? If you were prescribed a gel that contains a numbing medicine, use it exactly as told in the directions. Do not use these gels for children who are younger than 2 years of age. ??? Use an antibacterial mouth rinse as told by your dental care provider. General instructions ??? Gargle with a mixture of salt and water 3???4 times a day or as needed. To make salt water, completely dissolve ?1 tsp (3???6 g) of salt in 1 cup (237 mL) of warm water. ??? Eat a soft diet while your abscess is healing. ??? Drink enough fluid to keep your urine pale yellow. ??? Do not apply heat to the outside of your mouth. ??? Do not use any products that contain nicotine or tobacco. These products include cigarettes, chewing tobacco, and vaping devices, such as e-cigarettes. If you need help quitting, ask your dental care provider. ??? Keep all follow-up visits. This is important. How is this prevented? Excellent dental home care, which includes brushing your teeth every morning and night with fluoride toothpaste. Floss one time each day. ??? Get regularly scheduled dental cleanings. ??? Consider having a dental sealant applied on teeth that have deep grooves to prevent cavities. ??? Drink fluoridated water regularly. This includes most tap water. Check the label on bottled water to see if it contains fluoride. ??? Reduce or eliminate sugary drinks. ??? Eat healthy meals and snacks. ??? Wear a mouth guard or face shield to protect your teeth while playing sports. Contact a health care provider if: ??? Your pain is worse and is not helped by medicine. ??? You have swelling. ??? You see pus around the tooth. ??? You have a fever or chills. Get help right away if: ??? Your symptoms suddenly get worse. ??? You have a very bad headache. ??? You have problems breathing or swallowing. ??? You have trouble opening your mouth. ??? You have swelling in your neck or around your eye. These symptoms may represent a serious problem that is an emergency. Do not wait to see if the symptoms will go away. Get medical help right away. Call your local emergency services (911 in the [place] Do not drive yourself to the hospital. Summary ??? A dental abscess is a collection of pus in or around a tooth that results from an infection. ??? A dental abscess may result from severe tooth decay, trauma to the tooth, or severe gum diseasearound a tooth. ??? Symptoms include severe pain, swelling, redness, and drainage of pus in and around the infectedtooth. ??? The first priority in treating a dental abscess is to drain out the pus. Treatment may also involve removing damage inside the tooth (root canal) or extracting the tooth. This information is not intended to replace advice given to you by your health care provider. Make sure you discuss any questions you have with your health care provider. Document Revised: 07/21/2021 Document Reviewed: 07/21/2021 Elsevier Patient Education ?? 2021 [employer] Follow Up Care 03/23/2022 09:47:10 With:dentist Address: When:3 to 5 days Patient Care team information Personnel Name: Rose Garcia PA-C Address: Address: [facility] [id number] [place] [address]
--- OUTSIDE RECORDS SUMMARY | 2022-09-26 22:56 | XMS_ITS | Continuity of Care Document ---
Author Name Unknown Organization [facility] Address [address] [place] [address] Care Team Providers Care Supervisor Agency Appointments Name Role Phone Rose Garcia Primary Care Physician [phone] Encounter [facility] Date(s): 03/24/22 - 03/24/22 [facility] [address] [place] [address] [place] Encounter Diagnosis Vomiting(Discharge Diagnosis) - 03/24/22 Substance use(Discharge Diagnosis) - 03/24/22 Hypokalemia(Discharge Diagnosis) - 03/24/22 Discharge Disposition: Home or Self Care Attending Physician: Sapna Soto MD Admitting Physician: Sapna Soto MD Referring Physician: Sapna Soto MD Allergies, Adverse Reactions, Alerts No Known Medication Allergies Substance Reaction Severity Status RAGWEED POLLEN Unknown Active Assessment and Plan Future Appointments Immunizations Given and Recorded Vaccine Date Status [...] day, # 150 tab, 1 Refill(s), Pharmacy: [facility] #58 Start Date: 03/21/22 Stop Date: 05/20/22 Status: Ordered ibuprofen 600 mg oral tablet 1 tab, Oral, TID, 0 Refill(s) Start Date: 10/11/21 Status: Ordered methadone 120 mg, Oral, Tab-Dispers, Once, First Dose: 03/24/22 11:57:00 EDT, Stop Date: 03/24/22 11:57:00 EDT, Physician Stop, STAT Start Date: 03/24/22 Stop Date: 03/24/22 Status: Completed methadone 120 mg =, Oral, Daily, per Haylee at [facility] pt takes between 8-9am. Last dose was 03.23.22 at that time, 0 Refill(s) Start Date: 10/11/21 Status: Ordered [...] nausea, # 15 tab, 0 Refill(s), Pharmacy: [facility] #[id number], cm, 03/23/22 9:56:00 EDT, Height/Length Dosing, [...] disorder Confirmed Active 1From 07-17-2020 visit: 07/08/2020 [facility]- Case's Rose Fosterismael JUAN hopes that she will get her Disability determination due to her mental health and orthopedic problems. This would help with her housing insecurity and make social determinants of health less of a problem for her. 2From 03-06-2021 visit: 03/03/2021 Worsening. Patient will discuss her sleep problems with Amparo Lema, blocker and cutter contact lens. 3From 08-31-2020 visit: 07/08/2020 Stable. 06/17/2020 Patient [...] 600mg SIX times a day. 02/19/2020 Sees [facility] for methadone and remains on Gabapentin. [...] refills. 6From 10-05-2019 visit: doing well at [facility] on methadone. 7From 06-08-2021 visit: 03/03/2021 [...] full report) Results Laboratory List Name Date Beta hCG Quantitative 03/24/22 CBC w/ Diff 03/24/22 Comprehensive Metabolic Panel (CMP) 02/26 01/16 Lipase Level 03/24/22 Magnesium Level 03/24/22 Automated Diff 03/24/22 Most recent to oldest [Reference Range]: 1 WBC [5.0-10.0 x10^3/mcL] 7.8 x10^3/mcL (03/24/22 11:00 AM) RBC [4.1-5.3 x10^6/mcL] 4.7 x10^6/mcL (03/24/22 11:00 AM) Neutro Auto [40.0-75.0 %] 71.1 % (03/24/22 11:00 AM) Lymph Auto [20.0-50.0 %] 22.2 % (03/24/22 11:00 AM) [place] Auto [2.0-15.0 %] 5.7 % (03/24/22 11:00 AM) Basophil Auto [0.0-1.0 %] 0.4 % (03/24/22 11:00 AM) BUN [7-18 mg/dL] 17 mg/dL (03/24/22 11:00 AM) Glucose Level [74-106 mg/dL] 107 mg/dL *HI* (03/24/22 11:00 AM) Potassium Level [3.5-5.1 mmol/L] 3.2 mmo l/L *LOW* (03/24/22 11:00 AM) MCV [80.0-103.0 fL] 89.4 fL (03/24/22 11:00 AM) AST [15-37 unit/L] 24 unit/L (03/24/22 11:00 AM) ALT [14-59 unit/L] 28 unit/L (03/24/22 11:00 AM) MCHC [31.0-35.0 g/dL] 34.7 g/dL (03/24/22 11:00 AM) Sodium Level [136-145 mmol/L] 136 mmol/L (03/24/22 11:00 AM) Hct [37.0-47.0 %] 42.1 % (03/24/22 11:00 AM) Lipase Level [16-77 unit/L] 19 unit/L (03/24/22 11:00 AM) Calcium Level [8.5-10.1 mg/dL] 10.6 mg/d L *HI* (03/24/2200 AM) Albumin Level [3.4-5.0 g/dL] 4.7 g/dL (03/24/22:00 AM) Protein Total [6.4-8.2 g/dL] 8.7 g/dL *HI* (03/24/22 11:00 AM) MCH [26.0-32.0 pg] 31.0 pg (03/24/22 11:00 AM) Magnesium Level [1.8-2.4 mg/dL] 1.8 mg/d L (03/24/22 11:00 AM) Neutro Absolute 5.5 x10^3/mcL *NA* (03/24/22 11:00 AM) Bilirubin Total [0.2-1.0 mg/dL] 0.3 mg/d L (03/24/22:00 AM) Hgb [12.0-16.0 g/dL] 14.6 g/dL (03/24/22 11:00 AM) Alk Phos [46-146 unit/L] 86 unit/L (03/24/22 11:00 AM) Platelets [130-450 x10^3/mcL] 352 x10^3/ mcL (03/24/22 11:00 AM) CO2 [21-32 mmol/L] 35 mmol/L *HI* (03/24/22 11:00 AM) eGFR Non-AA [>=60] 74 (03/24/22 11:00 AM) eGFR AA [>=60] 74 (03/24/22 11:00 AM) Chloride Level [98-107 mmol/L] 93 mmol/L *LOW* (03/24/22 11:00 AM) RDW-CV [11.7-17.0 %] 12.4 % (03/24/22 11:00 AM) Imm Gran Auto [0.0-0.9 %] 0.3 % (03/24/22 11:00 AM) Creatinine Level [0.55-1.02 mg/dL] 1.00 mg/dL (03/24/22 11:00 AM) Eos, Auto [1.0-6.0 %] 0.3 % *LOW* (03/24/22 11:00 AM) Beta hCG Qnt [1-6 mIntlUnit/mL] <1 mIntl Unit/mL *LOW* (03/24/22 11:00 AM) Vital Signs Most recent to oldest [Reference Range]: 1 2 Temperature Temporal Artery [36-38 Deg C ] 35.9 Deg C *LOW* (03/24/22 9:47 AM) Peripheral Pulse Rate [60-100 bpm] 88 bp m (03/24/22 12:28 PM) 109 bpm *HI* (03/24/22 9:47 AM) Respiratory Rate [12-24 br/min] 16 br/mi n (03/24/22 12:28 PM) 18 br/min (03/24/22 9:47 AM) Respiratory Rate [12.72505291760687545665-58.8366566006 br/min] 16 br/min (03/24/22 12:26 PM) Blood Pressure [90-140/60-90 mmHg] 128/8 6mmHg (03/24/22 12:28 PM) 132/90mmHg (03/24/22 9:47 AM) Weight Dosing 63.50 kg (03/24/22 10:01 AM) Weight Estimated 63.50 kg (03/24/22 9:47 AM) Height/Length Dosing 152.400 cm (03/24/22 10:01 AM) Height/Length Estimated 152.400 cm (03/24/22 9:47 AM) Social History Social History Type Response Smoking Status Smoking tobacco use: Never tobacco user;Never 1 entered on: 10/11/21 Sex Female 1most recent tobacco screenin09-01-2021 Hospital Discharge Instructions Patient Education 03/24/2022 11:00:52 Nausea and Vomiting, Adult Nausea and Vomiting, Adult Nausea is the feeling that you have an upset stomach or that you are about to vomit. Vomiting is when stomach contents are thrown up and out of the mouth as a result of nausea. Vomiting can make you feel weak and cause you to become dehydrated. Dehydration can make you feel tired and thirsty, cause you to have a dry mouth, and decrease how often you urinate. Older adults and people with other diseases or a weak disease-fighting system (immune system) are at higher risk for dehydration. It is important to treat your nausea and vomiting as told by your health care provider. Follow these instructions at home: Watch your symptoms for any changes. Tell your health care provider about them. Follow these instructions to care for yourself at home. Eating and drinking ??? Take an oral rehydration solution (ORS). This is a drink that is sold at pharmacies and retail stores. ??? Drink clear fluids slowly and in small amounts as you are able. Clear fluids include water, icechips, low-calorie sports drinks, and fruit juice that has water added (diluted fruit juice). ??? Eat bland, kysl-rx-rrevbs foods in small amounts as you are able. These foods include bananas, applesauce, rice, lean meats, toast, and crackers. ??? Avoid fluids that contain a lot of sugar or caffeine, such as energy drinks, sports drinks, andsoda. ??? Avoid alcohol. ??? Avoid spicy or fatty foods. General instructions ??? Take ihza-ims-xnzexxq and prescription medicines only as told by your health care provider. ??? Drink enough fluid to keep your urine pale yellow. ??? Wash your hands often using soap and water. If soap and water are not available, use hand materials scientist. ??? Make sure that all people in your household wash their hands well and often. ??? Rest at home while you recover. ??? Watch your condition for any changes. ??? Breathe slowly and deeply when you feel nauseated. ??? Keep all follow-up visits as told by your health care provider. This is important. Contact a health care provider if: ??? Your symptoms get worse. ??? You have new symptoms. ??? You have a fever. ??? You cannot drink fluids without vomiting. ??? Your nausea does not go away after 2 days. ??? You feel light-headed or dizzy. ??? You have a headache. ??? You have muscle cramps. ??? You have a rash. ??? You have pain while urinating. Get help right away if: ??? You have pain in your chest, neck, arm, or jaw. ??? You feel extremely weak or you faint. ??? You have persistent vomiting. ??? You have vomit that is bright red or looks like black coffee grounds. ??? You have bloody or black stools or stools that look like tar. ??? You have a severe headache, a stiff neck, or both. ??? You have severe pain, cramping, or bloating in your abdomen. ??? You have difficulty breathing, or you are breathing very quickly. ??? Your heart is beating very quickly. ??? Your skin feels cold and clammy. ??? You feel confused. ??? You have signs of dehydration, such as: ??? Dark urine, very little urine, or no urine. ??? Cracked lips. ??? Dry mouth. ??? Sunken eyes. ??? Sleepiness. ??? Weakness. These symptoms may represent a serious problem that is an emergency. Do not wait to see if the symptoms will go away. Get medical help right away. Call your local emergency services (911 in the [place] Do not drive yourself to the hospital. Summary ??? Nausea is the feeling that you have an upset stomach or that you are about to vomit. As nausea gets worse, it can lead to vomiting. Vomiting can make you feel weak and cause you to become dehydrated. ??? Follow instructions from your health care provider about eating and drinking to prevent dehydration. ??? Take iuny-ccj-kwlqmsg and prescription medicines only as told by your health care provider. ??? Contact your health care provider if your symptoms get worse, or you have new symptoms. ??? Keep all follow-up visits as told by your health care provider. This is important. This information is not intended to replace advice given to you by your health care provider. Make sure you discuss any questions you have with your health care provider. Document Revised: 08/03/2021 Document Reviewed: 10/22/2018 Else[employer] Patient Education ?? 2021 [employer] Follow Up Care 03/24/2022 09:47:34 With:Rose Garcia PA-C Address: [place] [address]- When:1 month Patient Care team information Personnel Name: Rose Garcia PA-C Address: Address: [address]
--- OUTSIDE RECORDS SUMMARY | 2022-09-26 22:56 | XMS_ITS | Continuity of Care Document ---
Author Name Unknown Organization [facility] Address [address] [place] [address] Care Team Providers Care Repair Department Manager Name Role Phone Rose Garcia Primary Care Physician [phone] Encounter [id number] Date(s): 09/21/22 - 09/21/22 [facility] [address] [place] [address] us Encounter Diagnosis Psychosis(Discharge Diagnosis) - 09/21/22 Discharge Disposition: Home or Self Care Attending Physician: Sapna Soto MD Admitting Physician: Sapna Soto MD Allergies, Adverse Reactions, Alerts No Known Medication Allergies Substance Reaction Severity Status RAGWEED POLLEN Unknown Active Assessment and Plan Future Appointments Functional Status 09/21/22 Family Member Travel History No recent t [...] bedtime, # 90 tab, 3 Refill(s), Pharmacy: [facility] #[id number], cm, 08/02/22 9:20:00 EST, Height/Length Dosing, [...] day, # 150 tab, 11 Refill(s), Pharmacy: [facility] #58, 152.4, cm, 03/24/22 10:01:00 EDT, Height/Length Dosing, 63.5, kg, 03/24/22 10:01:00 EDT, Weight Dosing Start Date: 05/24/22 Stop Date: 05/19/23 Status: Ordered ibuprofen 600 mg oral tablet See Instructions, TAKE ONE TABLET BY MOUTH THREE TIMES A DAY, # 90 tab, 5 Refill(s), Pharmacy: [facility] #58, 152.4, cm, 03/24/22 10:01:00 EDT, Height/Length Dosing, 63.5, kg, 03/24/22 10:01:00 EDT, Weight Dosing Start Date: 05/01/22 Status: Ordered methadone 115 mg =, Oral, Daily, 0 Refill(s) Start Date: 07/09/22 Status: Ordered nicotine 14 mg/24 hr transdermal film, extended release 1 patches, Topical, Daily, # 90 patches, 0 Refill(s), Pharmacy: [facility] #58, 152, cm, 08/02/22 9:20:00 EST, Height/Length Dosing, 61, kg, 08/02/22 9:20:00 EST, Weight Dosing Start Date: 08/07/22 Stop Date: 11/05/22 Status: Ordered ondansetron 4 mg oral tablet, disintegrating See Instructions, DISSOLVE ONE TABLET BY MOUTH THREE TIMES DAILY, # 90 tab, 0 Refill(s), Pharmacy: [facility] #58, 152.4, cm, 03/24/22 10:01:00 EDT, Height/Length Dosing, 63.5, kg, 03/24/22 10:01:00 EDT, Weight Dosing Start Date: 04/16/22 Status: Ordered polyethylene glycol 3350 17 g =, Oral, Daily, For 30 days, 0 Refill(s) Start Date: 10/11/21 Status: Ordered senna 8.6 mg oral tablet 17.2 mg = 2 tab, Oral, every night at bedtime, 0 Refill(s) Start Date: 08/10/22 Status: Ordered SEROquel 25 mg oral tablet See Instructions, 2 tabs at HS and may take 1 in AM and 1 in afternoon if needed x 30 days., # 120 tab, 11 Refill(s), Pharmacy: [facility] #58, 152.4, cm, 08/10/22 12:06:00 EDT, Height/Length Dosing, 54.4, kg, 08/10/22 12:06:00 EDT, Weight Dosing Start Date: 09/18/22 Status: Ordered sertraline 50 mg oral tablet 50 mg = 1 tab, Oral, Daily, # 90 tab, 4 Refill(s), Pharmacy: [facility] #58, 152.4, cm, 08/10/22 12:06:00 EDT, Height/Length Dosing, 54.4, kg, 08/10/22 12:06:00 EDT, Weight Dosing Start Date: 09/07/22 Stop Date: 12/01/23 Status: Ordered Problem List Condition Confirmation Course [...] disorder Confirmed Active 1From 07-17-2020 visit: 07/08/2020 [facility]'s Rosenaty Garcia PA-C hopes that she will get her Disability determination due to her mental health and orthopedic problems. This would help with her housing insecurity and make social determinants of health less of a problem for her. 2From 03-06-2021 visit: 03/03/2021 Worsening. Patient will discuss her sleep problems with Amparo Lema, bacon skin lifter. 3From 03-26-2018 visit: 03/26/2018 Onto Celebrex. Also started Omeprazole because she is vomiting. 4From 06-18-2020 visit: Had surgery on the knee after severe ski accident, but knee stability, arthritis led to chronic pain. 04/30/2019 Patient stopped her tramadol and the gabapentin is ok at 600mg FIVE times a day. 2019 We will allow Gabapentin 600mg SIX times a day. 02/19/2020 Sees [facility] for methadone and remains on Gabapentin. We [...] 5From 10-05-2019 visit: doing well at [facility] on methadone. 6From 06-08-2021 visit: 03/03/2021 Stable. [...] Laboratory List Name Date Test Urine Qual 09/21/22 SARS-CoV-2 (COVID-19) RNA (ID Now) Urinalysis with Micro if Indicated and C ulture if Indicated 09/21/22 Basic Metabolic Panel (BMP) 09/21/22 CBC w/ Diff 09/21/22 Automated Diff 09/21/22 Most recent to oldest [Reference Range]: 1 WBC [5.0-10.0 x10^3/mcL] 7.2 x10^3/mcL (09/21/22 9:35 AM) RBC [4.1-5.3 x10^6/mcL] 4.1 x10^6/mcL (09/21/22 9:35 AM) Neutro Auto [40.0-75.0 %] 61.7 % (09/21/22 9:35 AM) Lymph Auto [20.0-50.0 %] 29.0 % (09/21/22 9:35 AM) [place] Auto [2.0-15.0 %] 6.9 % (09/21/22 9:35 AM) Basophil Auto [0.0-1.0 %] 0.8 % (09/21/22 9:35 AM) BUN [7-18 mg/dL] 10 mg/dL (09/21/22 9:35 AM) UA Color Pale Yellow (09/21/22 9:38 AM) Glucose Level [74-106 mg/dL] 116 mg/dL *HI* (09/21/22 9:35 AM) Potassium Level [3.5-5.1 mmol/L] 4.1 mmo l/L (09/21/22 9:35 AM) MCV [80.0-96.0] 92.0 (09/21/22 9:35 AM) UA Urobilinogen Normal (09/21/22 9:38 AM) UA Bili [Negative] Negative (09/21/22 9:38 AM) UA Ketones Negative (09/21/22 9:38 AM) MCHC [31.0-35.0 g/dL] 33.2 g/dL (09/21/22 9:35 AM) Sodium Level [136-145 mmol/L] 139 mmol/L (09/21/22 9:35 AM) UA Leuk Est Negative (09/21/22 9:38 AM) UA Nitrite Negative (09/21/22 9:38 AM) UA Glucose [Negative] Negative (09/21/22 9:38 AM) Hct [37.0-47.0 %] 37.9 % (09/21/22 9:35 AM) Calcium Level [8.5-10.1 mg/dL] 9.3 mg/dL (09/21/22 9:35 AM) UA Protein Negative (09/21/22 9:38 AM) MCH [26.0-32.0 pg] 30.6 pg (09/21/22 9:35 AM) Neutro Absolute 4.4 x10^3/mcL *NA* (09/21/22 9:35 AM) Hgb [12.0-16.0 g/dL] 12.6 g/dL (09/21/22 9:35 AM) UA Blood Negative (09/21/22 9:38 AM) UA Spec Grav <=1.005 *NA* (09/21/22 9:38 AM) Platelets [130-450 x10^3/mcL] 258 x10^3/ mcL (09/21/22 9:35 AM) CO2 [21-32 mmol/L] 27 mmol/L (09/21/22 9:35 AM) UA pH 7.0 *NA* (09/21/22 9:38 AM) eGFR Non-AA [>=60] 71 (09/21/22 9:35 AM) eGFR AA [>=60] 71 (09/21/22 9:35 AM) UA Appear Clear (09/21/22 9:38 AM) Chloride Level [98-107 mmol/L] 102 mmol/ L (09/21/22 9:35 AM) RDW-CV [11.7-17.0 %] 13.1 % (09/21/22 9:35 AM) Imm Gran Auto [0.0-0.9 %] 0.3 % (09/21/22 9:35 AM) Creatinine Level [0.55-1.02 mg/dL] 1.03 mg/dL *HI* (09/21/22 9:35 AM) SARS-CoV-2 (COVID-19) RNA (ID Now) [Not Detected] Not Detected (09/21/22 9:38 AM) Eos, Auto [1.0-6.0 %] 1.3 % (09/21/22 9:35 AM) U hCG Ql Negative (09/21/22 9:38 AM) Vital Signs Most recent to oldest [Reference Range]: 1 Temperature Temporal Artery [36-38 Deg C ] 37.0 Deg C (4/27/23 8:41 AM) Peripheral Pulse Rate [60-100 bpm] 107 b pm *HI* (09/21/22 8:41 AM) Respiratory Rate [12-24 br/min] 18 br/mi n (09/21/22 8:41 AM) Blood Pressure [90-140/60-90 mmHg] 122/9 1mmHg (09/21/22 8:41 AM) Weight Dosing 58.00 kg (09/21/22 9:00 AM) Weight Estimated 58.00 kg (09/21/22 8:41 AM) Height/Length Dosing 149.000 cm (09/21/22 9:00 AM) Height/Length Estimated 149.000 cm (09/21/22 8:41 AM) Social History Social History Type Response Smoking Status Smoking tobacco use: Current some day tobacco user;Never 1 entered on: 09/07/22 Sex Female 1most recent tobacco screenin09-01-2021 Hospital Discharge Instructions Patient Education 09/21/2022 11:09:22 Psychosis Psychosis Psychosis, also called thought disturbance, refers to a severe loss of contact with reality. Peoplehaving a psychotic episode are not able to think clearly, and their emotions and responses do not match with what is actually happening. People having a psychotic episode may have false beliefs aboutwhat is happening or who they are (delusions). They may see, hear, taste, smell, or feel things that are not present (hallucinations). They may also be very upset (agitated), have chaotic behavior, or be very quiet and withdrawn. What are the causes? This condition may be caused by: ??? Very serious mental health (psychiatric) conditions such as schizophrenia, bipolar disorder, ormajor depression. ??? Use of drugs such as hallucinogens or alcohol. ??? Medical conditions such as delirium or neurological disorders. What are the signs or symptoms? Symptoms of this condition include: ??? Delusions, such as: ??? Feeling a lot of fear or suspicion (paranoia). ??? Believing something that is odd, unrealistic, or false, such as believing that you are someone else. ??? Hallucinations, such as: ??? Hearing or seeing things, smelling odors, experiencing tastes, or feeling bodily sensations. ??? Command hallucinations that direct you to do something that could be dangerous. ??? Disorganized thinking, such as thoughts that jump from one idea to another in a way that does not make sense. ??? Disorganized speech, such as saying things that do not make sense, echoing others, or using words based on their sound rather than their meaning. ??? Inappropriate behavior, such as talking to yourself, showing a clear increase or decrease in activity, or intruding on unfamiliar people. How is this diagnosed? This condition is diagnosed based on an assessment by a health care provider. ??? The health care provider may ask questions about: ??? Your thoughts, feelings, and behavior. ??? Any medical conditions you have. ??? Any use of alcohol or drugs. ??? One or more of the following may also be done: ??? A physical exam. ??? Blood tests. ??? Brain imaging, such as a CT scan or MRI. ??? A brain wave study (electroencephalogram, or EEG). The health care provider may refer you to a mental health professional for further tests. How is this treated? Treatment for this condition may depend on the cause of the psychosis. Treatment may include one ormore of the following: ??? Supportive care and monitoring in the emergency room or hospital. You may need to stay in the hospital if you are a danger to yourself or others. ??? Taking antipsychotic medicines to reduce symptoms and to balance chemicals in the brain. ??? Treating an underlying medical condition. ??? Stopping or reducing drugs that are causing psychosis. ??? Therapy and other supportive programs, such as: ??? Ongoing treatment and care from a mental health professional. ??? Individual or family therapy. ??? Training to learn new skills to cope with the psychosis and prevent further episodes. Follow these instructions at home: ??? Take [id number] and prescription medicines only as told by your health care provider. ??? Consult a health care provider before taking [id number] medicines, herbs, or supplements. ??? Surround yourself with people who care about you and can help manage your condition. ??? Keep stress under control. Stress may trigger psychosis and make symptoms worse. ??? Maintain a healthy lifestyle. This includes: ??? Eating a healthy diet. ??? Getting enough sleep. ??? Exercising regularly. ??? Avoiding alcohol, nicotine, and recreational drugs. ??? Keep all follow-up visits as told by your health care provider. This is important. Contact a health care provider if: ??? Medicines do not seem to be helping. ??? You or others notice that you: ??? Continue to see, smell, or feel things that are not there. ??? Hear voices telling you to do things. ??? Feel extremely fearful and suspicious that someone or something will harm you. ??? Feel unable to leave your house. ??? Have trouble taking care of yourself. ??? You have side effects of medicines, such as: ??? Changes in sleep patterns. ??? Dizziness. ??? Weight gain. ??? Restlessness. ??? Movement changes. ??? Shaking that you cannot control (tremors). Get help right away if: ??? You have serious side effects of medicine, such as: ??? Swelling of the face, lips, tongue, or throat. ??? Fever, confusion, muscle spasms, or seizures. ??? You have serious thoughts about harming yourself or hurting others. If you ever feel like you may hurt yourself or others, or have thoughts about taking your own life,get help right away. You can go to your nearest emergency department or call: ??? Your local emergency services (911 in the [place]? A suicide crisis helpline, such as the National Suicide Prevention Lifeline at . This is open 24 hours a day. Summary ??? Psychosis refers to a severe loss of contact with reality. People having a psychotic episode are not able to think clearly, and they may have delusions or hallucinations. ??? Psychosis is a serious medical condition that should be treated by a medical professional as soon as possible. Being checked and treated right away can stop or reduce symptoms. This prevents moreserious problems from developing. ??? In some cases, treatment may include taking antipsychotic medicines to reduce symptoms and to balance chemicals in the brain. ??? Support programs may help you learn new skills to cope with the psychosis and prevent further episodes. This information is not intended to replace advice given to you by your health care provider. Make sure you discuss any questions you have with your health care provider. Document Revised: 07/26/2018 Document Reviewed: 06/25/2018 Elsevier Patient Education ?? 2021 [employer] Follow Up Care 09/21/2022 08:41:44 With:Follow up with primary care provider Address: When:1 to 2 weeks Physician Emergency department Note * Sapna Soto MD: PERFORM Event Display: ED Note Physician Authored Date: [id number] MORRIS JOSE ANN :1985 Age:37 years Sex:Female Visit Date:09/21/2022 Primary Care Physician: Rose Garcia PA-C Basic Information Time Seen: Sapna Soto MD / 09/21/2022 09:44 Chief Complaint i'm dealing with a lot of unresolved pyschosis, I'm hearing three people talking to me, and it won't stop and I don't know what's going on.The voices are telling me they hate me and they want to kill me or to kill myself. I have reason to History Of Present Illness: Patient reports??the last 3 months she feels like??there are 3 people that are talking to her she feels like they have gotten into the ochoa of her house??she thinks that something has been implantedin her??mouth or head.?? Patient reports she took a Flexeril and Seroquel prior to coming to the emergency department??she is on the Flexeril for chronic back pain. ??Patient has not seen Barby Lema in a number of months??as she felt??with her therapist that she might not need to see her.?Patient lives with her dad patient states she worries be may be homeless again as her dad??does not want her there??as he??thinks she is psychotic. ??Patient reports she has had headaches on and off for the last 3 days??no ear nose or throat pain??no chest pain no cough??no nausea no vomiting no extremity edema patient denies risk of ??no urinary issues??no extremity edema??no skin rashes.. ??Patient denies any??overdose or taking too much medication??patient denies SI or HI??although patient states that she feels like with the voices she feels like she cannot continue living like this. Review of Systems: see hpi for ros Physical Exam Vitals & Measurements T:??37.0?C ??(Temporal Artery)?? HR:??107??(Peripheral)?? RR:??18?? BP:??122/91?? SpO2:??97%?? HT:??149.000??cm?? WT:??58.00??kg??(Estimated)?? O2 Therapy:??Room air?? General: Alert and oriented, well nourished,?No??acute distress Eye: PER?Normal??conjunctiva,??No??scleral icterus HENT: Normocephalic,??nontraumatic??Normal hearing Neck: Supple, non-tender,??No??lymphadenopathy Lungs: Clear to auscultation,?Non-labored?? respiration Heart:?Normal?? rate,?Regular??rhythm,?No??murmur,?No??gallop,?No??edema Chest: wall excursion wnl no abnormal movements no obvious deformities Abdomen: Soft, non-tender, non-distended,??No??masses Musculoskeletal:?Normal?? range of motion and strength,?No??tenderness,?No??swelling Skin: Skin is warm, dry and pink,?No??rashes,?No??lesions Neurologic: Awake, alert and oriented X4 Psychiatric: Cooperative, appropriate mood and affect??patient insistent that she hears??3 voices??that they are in the [place] of her house Medical Decision Making: For MDM please see under assessment and plan Procedure No Qualifying Data Assessment/Plan 1.??Psychosis??F29 Patient is hearing voices. ??Patient is medically cleared for disposition as per mental health. Orders: Test Urine Qual, Urine, Stat Collect, 09/21/22 9:59:00 EDT, Once, Nurse collect, Print Label Medication Reconciliation Unchanged cyclobenzaprine (cyclobenzaprine 10 mg [...] THREE TIMES A DAY. Refills: 5. ?? [id number] Milligrams Oral (given by mouth) every day. ?? nicotine (nicotine 14 mg/24 hr transdermal film, extended release)1 patch(es) Topical (on the skin)every day for 90 Days. Refills: 0. ?? ondansetron (ondansetron 4 mg oral tablet, disintegrating)DISSOLVE ONE TABLET BY MOUTH THREE TIMES DAILY. Refills: 0. ?? polyethylene glycol 115669 Gram Oral (given by mouth) every day. For 30 days. ?? QUEtiapine (SEROquel 25 mg oral tablet)2 tabs at HS and may take 1 in AM and 1 in afternoon if needed x 30 days.. Refills: 11. ?? senna (senna 8.6 mg oral tablet)2 tab Oral (given by mouth) every night at bedtime. ?? sertraline (sertraline 50 mg oral tablet)1 tab Oral (given by mouth) every day for 90 Days. Refills: 4. Problem List/Past Medical History Ongoing Anxiety disorder [...] Never. Other Substance Use Past, Cocaine- Comments: 115 mg of methadone. BAART 120 mg po daily Tobacco Current some day tobacco user Tobacco Use:. Never Smokeless Tobacco use:.- Comments: most recent tobacco screenin09-01-2021 Family History Breast cancer: Mother. Hypertension: Father. Malignant tumor of lung: Negative: Mother, Father, Grandfather (M), Grandfather (P), Grandmother (M) and Grandmother (P). Migraine: Mother. PsA (Psoriatic arthritis): Father. Lab Results CBC and Differential?? LATEST RESULTS?? HISTORICAL RESULTS?? WBC?? 09/21/22 09:35?? 7.2?? 08/10/22?? 7.3?? RBC?? 09/21/22 09:35?? 4.1?? 08/10/22?? 4.1?? Hgb?? 09/21/22 09:35?? 12.6?? 08/10/22?? 12.6?? Hct?? 09/21/22 09:35?? 37.9?? 08/10/22?? 38.3?? MCV?? 09/21/22 09:35?? 92.0?? 08/10/22?? 93.2?? MCH?? 09/21/22 09:35?? 30.6?? 08/10/22?? 30.7?? MCHC?? 09/21/22 09:35?? 33.2?? 08/10/22?? 32.9?? RDW-CV?? 09/21/22 09:35?? 13.1?? 08/10/22?? 12.5?? Platelets?? 09/21/22 09:35?? 258?? 08/10/22?? 261?? Neutro Auto?? 09/21/22 09:35?? 61.7?? 08/10/22?? 57.0?? Lymph Auto?? 09/21/22 09:35?? 29.0?? 08/10/22?? 36.9?? [place] Auto?? 09/21/22 09:35?? 6.9?? 08/10/22?? 4.9?? Eos, Auto?? 09/21/22 09:35?? 1.3?? 08/10/22?? 0.7 ??Low?? Basophil Auto?? 09/21/22 09:35?? 0.8?? 08/10/22?? 0.4?? Imm Gran Auto?? 09/21/22 09:35?? 0.3?? 08/10/22?? 0.1?? Neutro Absolute?? 09/21/22 09:35?? 4.4?? 08/10/22?? 4.2? Routine Chemistry?? LATEST RESULTS?? HISTORICAL RESULTS?? Sodium Level?? 09/21/22 09:35?? 139?? 08/10/22?? 139?? Potassium Level?? 09/21/22 09:35?? 4.1?? 08/10/22?? 3.6?? Chloride Level?? 09/21/22 09:35?? 102?? 08/10/22?? 101?? CO2?? 09/21/22 09:35?? 27?? 08/10/22?? 28?? BUN?? 09/21/22 09:35?? 10?? 08/10/22?? 7?? Glucose Level?? 09/21/22 09:35?? 116 ??High?? 08/10/22?? 129 ??High?? Creatinine Level?? 09/21/22 09:35?? 1.03 ??High?? 08/10/22?? 0.79?? eGFR AA?? 09/21/22 09:35?? 71?? 08/10/22?? 98?? eGFR Non-AA?? 09/21/22 09:35?? 71?? 08/10/22?? 98?? Calcium Level?? 09/21/22 09:35?? 9.3?? 08/10/22?? 9.3? UA Macroscopic?? LATEST RESULTS?? HISTORICAL RESULTS?? UA Color?? 09/21/22 09:38?? Pale Yellow?? 08/10/22?? Pale Yellow?? UA Appear?? 09/21/22 09:38?? Clear?? 08/10/22?? Clear?? UA Glucose?? 09/21/22 09:38?? Negative?? 08/10/22?? Negative?? UA Bili?? 09/21/22 09:38?? Negative?? 08/10/22?? Negative?? UA Ketones?? 09/21/22 09:38?? Negative?? 08/10/22?? Negative?? UA Spec Grav?? 09/21/22 09:38?? <=1.005?? 08/10/22?? <=1.005?? UA Blood?? 09/21/22 09:38?? Negative?? 08/10/22?? Negative?? UA pH?? 09/21/22 09:38?? 7.0?? 08/10/22?? 7.0?? UA Protein?? 09/21/22 09:38?? Negative?? 08/10/22?? Negative?? UA Urobilinogen?? 09/21/22 09:38?? Normal?? 08/10/22?? Normal?? UA Nitrite?? 09/21/22 09:38?? Negative?? 08/10/22?? Negative?? UA Leuk Est?? 09/21/22 09:38?? Negative?? 08/10/22?? Negative? Infectious Disease?? LATEST RESULTS?? HISTORICAL RESULTS?? SARS-CoV-2 (COVID-19) RNA (ID Now)?? 09/21/22 09:38?? Not Detected?? 07/10/22?? Not Detected? Electronically Signed on 09/21/22 10:24 AM Sapna Soto MD Emergency department Discharge instructions * Sapna Soto MD: PERFORM Event Display: ED Discharge Information Authored Date: [id number] ALEXANDRA JOSE SERGIO :1985 Age:37 years Sex:Female Visit Date:09/21/2022 Primary Care Physician: Rose Garcia PA-C Discharge Instructions We would like to thank you for allowing us to assist you with your healthcare needs. The following includes patient education materials and information regarding your injury/illness. Diagnosis from Today's Visit Psychosis Discharge Vitals Temperature??(Temporal Artery) 98.6 ??F (37.0 ??C) Heart Rate??(Peripheral) 107 Respiratory Rate?? 18 Blood Pressure?? 122/91?? Height?? 58.66 in (149.000 cm) Weight??(Estimated) 127.89 lb (58.00 kg) Allergies No Known Medication Allergies RAGWEED POLLEN What to Do Next Instructions from Your Care Team Call to schedule a follow-up with your primary care provider. You Need to Schedule the Following Appointments Follow Up with??Follow up with primary care provider When:??Within 1 to 2 weeks Upcoming Scheduled Appointments Sunday 1:00 PM EDT ?? Sunday 12:40 PM EDT ?? Sunday 3:00 PM EDT ?? You were treated today [...] night at bedtime Duration: 90 Days Unchanged docusate (docusate sodium 100 mg oral capsule) 1 Capsules Oral (given by mouth) 2 times a day as needed for as needed for constipation Unchanged gabapentin (gabapentin 600 mg oral tablet) 1 tab Oral (given by mouth) 5 times per day Adjustment disorder with anxious mood Duration: 30 Days Unchanged ibuprofen (ibuprofen 600 mg oral tablet) See instructions TAKE ONE TABLET BY MOUTH THREE TIMES A DAY ?? Unchanged methadone 115 Milligrams Oral (given by mouth) Every day [...] Unchanged QUEtiapine (SEROquel 25 mg oral tablet) See instructions 2 tabs at HS and may take 1 in AM and 1 in afternoon if needed x 30 days. ?? Unchanged senna (senna 8.6 mg oral tablet) 2 tab Oral (given by mouth) Every night at bedtime Unchanged sertraline (sertraline 50 mg oral tablet) 1 tab Oral (given by mouth) Every day Duration: 90 Days Education Materials Psychosis Psychosis, also called thought disturbance, refers to a severe loss of contact with reality. Peoplehaving a psychotic episode are not able to think clearly, and their emotions and responses do not match with what is actually happening. People having a psychotic episode may have false beliefs aboutwhat is happening or who they are (delusions). They may see, hear, taste, smell, or feel things that are not present (hallucinations). They may also be very upset (agitated), have chaotic behavior, or be very quiet and withdrawn. What are the causes? This condition may be caused by: ? Very serious mental health (psychiatric) conditions such as schizophrenia, bipolar disorder, or major depression. ? Use of drugs such as hallucinogens or alcohol. ? Medical conditions such as delirium or neurological disorders. What are the signs or symptoms? Symptoms of this condition include: ? Delusions, such as: ? Feeling a lot of fear or suspicion (paranoia). ? Believing something that is odd, unrealistic, or false, such as believing that you are someone else. ? Hallucinations, such as: ? Hearing or seeing things, smelling odors, experiencing tastes, or feeling bodily sensations. ? Command hallucinations that direct you to do something that could be dangerous. ? Disorganized thinking, such as thoughts that jump from one idea to another in a way that does not make sense. ? Disorganized speech, such as saying things that do not make sense, echoing others, or using words based on their sound rather than their meaning. ? Inappropriate behavior, such as talking to yourself, showing a clear increase or decrease in activity, or intruding on unfamiliar people. How is this diagnosed? This condition is diagnosed based on an assessment by a health care provider. ? The health care provider may ask questions about: ? Your thoughts, feelings, and behavior. ? Any medical conditions you have. ? Any use of alcohol or drugs. ? One or more of the following may also be done: ? A physical exam. ? Blood tests. ? Brain imaging, such as a CT scan or MRI. ? A brain wave study (electroencephalogram, or EEG). The health care provider may refer you to a mental health professional for further tests. How is this treated? Treatment for this condition may depend on the cause of the psychosis. Treatment may include one ormore of the following: ? Supportive care and monitoring in the emergency room or hospital. You may need to stay in the hospital if you are a danger to yourself or others. ? Taking antipsychotic medicines to reduce symptoms and to balance chemicals in the brain. ? Treating an underlying medical condition. ? Stopping or reducing drugs that are causing psychosis. ? Therapy and other supportive programs, such as: ? Ongoing treatment and care from a mental health professional. ? Individual or family therapy. ? Training to learn new skills to cope with the psychosis and prevent further episodes. Follow these instructions at home: ? Take bvll-[id number] and prescription medicines only as told by your health care provider. ? Consult a health care provider before taking xjyo-rew-[id number] medicines, herbs, or supplements. ? Surround yourself with people who care about you and can help manage your condition. ? Keep stress under control. Stress may trigger psychosis and make symptoms worse. ? Maintain a healthy lifestyle. This includes: ? Eating a healthy diet. ? Getting enough sleep. ? Exercising regularly. ? Avoiding alcohol, nicotine, and recreational drugs. ? Keep all follow-up visits as told by your health care provider. This is important. Contact a health care provider if: ? Medicines do not seem to be helping. ? You or others notice that you: ? Continue to see, smell, or feel things that are not there. ? Hear voices telling you to do things. ? Feel extremely fearful and suspicious that someone or something will harm you. ? Feel unable to leave your house. ? Have trouble taking care of yourself. ? You have side effects of medicines, such as: ? Changes in sleep patterns. ? Dizziness. ? Weight gain. ? Restlessness. ? Movement changes. ? Shaking that you cannot control (tremors). Get help right away if: ? You have serious side effects of medicine, such as: ? Swelling of the face, lips, tongue, or throat. ? Fever, confusion, muscle spasms, or seizures. ? You have serious thoughts about harming yourself or hurting others. If you ever feel like you may hurt yourself or others, or have thoughts about taking your own life,get help right away. You can go to your nearest emergency department or call: ? Your local emergency services (911 in the [place]? A suicide crisis helpline, such as the National Suicide Prevention Lifeline at . Thisis open 24 hours a day. Summary ? Psychosis refers to a severe loss of contact with reality. People having a psychotic episode are not able to think clearly, and they may have delusions or hallucinations. ? Psychosis is a serious medical condition that should be treated by a medical professional as soon as possible. Being checked and treated right away can stop or reduce symptoms. This prevents more serious problems from developing. ? In some cases, treatment may include taking antipsychotic medicines to reduce symptoms and to balance chemicals in the brain. ? Support programs may help you learn new skills to cope with the psychosis and prevent further episodes. This information is not intended to replace advice given to you by your health care provider. Make sure you discuss any questions you have with your health care provider. Document Revised: 07/26/2018 Document Reviewed: 06/25/2018 Elsevier Patient Education ?? 2022 [employer] Tests Performed Lab Test Name Test Result Date/Time WBC 7.2 x10^3/mcL 09/21/2022 09:35 EDT RBC 4.1 x10^6/mcL 09/21/2022 09:35 EDT Hgb 12.6 g/dL 09/21/2022 09:35 EDT Hct 37.9 % 09/21/2022 09:35 EDT MCV 92.0 09/21/2022 09:35 EDT MCH 30.6 pg 09/21/2022 09:35 EDT MCHC 33.2 g/dL 09/21/2022 09:35 EDT RDW-CV 13.1 % 09/21/2022 09:35 EDT Platelets 258 x10^3/mcL 09/21/2022 09:35 EDT Neutro Auto 61.7 % 09/21/2022 09:35 EDT Lymph Auto 29.0 % 09/21/2022 09:35 EDT [place] Auto 6.9 % 09/21/2022 09:35 EDT Eos, Auto 1.3 % 09/21/2022 09:35 EDT Basophil Auto 0.8 % 09/21/2022 09:35 EDT Imm Gran Auto 0.3 % 09/21/2022 09:35 EDT Neutro Absolute 4.4 x10^3/mcL 09/21/2022 09:35 EDT Sodium Level 139 mmol/L 09/21/2022 09:35 EDT Potassium Level 4.1 mmol/L 09/21/2022 09:35 EDT Chloride Level 102 mmol/L 09/21/2022 09:35 EDT CO2 27 mmol/L 09/21/2022 09:35 EDT BUN 10 mg/dL 09/21/2022 09:35 EDT Glucose Level 116 mg/dL 09/21/2022 09:35 EDT Creatinine Level 1.03 mg/dL 09/21/2022 09:35 EDT eGFR AA 71 09/21/2022 09:35 EDT eGFR Non-AA 71 09/21/2022 09:35 EDT Calcium Level 9.3 mg/dL 09/21/2022 09:35 EDT U hCG Ql NEGATIVE 09/21/2022 09:38 EDT UA Color Pale Yello 09/21/2022 09:38 EDT UA Appear CLEAR. 09/21/2022 09:38 EDT UA Glucose NEGATIVE 09/21/2022 09:38 EDT UA Bili NEGATIVE 09/21/2022 09:38 EDT UA Ketones NEGATIVE 09/21/2022 09:38 EDT UA Spec Grav <=1.005 09/21/2022 09:38 EDT UA Blood NEGATIVE 09/21/2022 09:38 EDT UA pH 7.0 09/21/2022 09:38 EDT UA Protein NEGATIVE 09/21/2022 09:38 EDT UA Urobilinogen 0.2 Uro 09/21/2022 09:38 EDT UA Nitrite NEGATIVE 09/21/2022 09:38 EDT UA Leuk Est NEGATIVE 09/21/2022 09:38 EDT SARS-CoV-2 (COVID-19) RNA (ID Now) Not Detected 09/21/2022 09:38 EDT Patient/Payment Analyst Signature Patient Name:MORRISJOSE BRUNSON I have received this information and my questions have been answered. Patient/Payment Analyst Name: Patient/Payment Analyst Signature: Relationship to Patient: Witness Name/Signature: Date: Electronically Signed on: 09/21/2022 12:09 EDTSigned by:[facility] Emergency department Note * Charlene Skelton A: PERFORM Event Display: ED Notes Authored Date: * Charlene Skelton: PERFORM Event Display: ED Notes Authored Date: * Kourtney Kiran: PERFORM Event Display: ED Notes Authored Date: Patient Care team information Care Team Personnel Name: Rose Garcia PA-C Position: Physician Member Role: Informed Provider Address: Address: [address] [place] [id number] [place] Name: Simón Boyd RN Position: Nurse Member Role: ED Nurse Name: Kali Vance RN Position: Nurse Member Role: ED Nurse Name: Sapna Soto MD Position: Physician Member Role: ED Physician Address: Address: [address] [place] [id number] [id number] Care Team Related Persons Name: JESSICA MORRIS Name: JS MORRIS
[2022-09-26 23:01] LABS: Bilirubin Negative (Negative); Blood Negative (Negative); Clarity Clear (Clear); Glucose Negative (Negative); Ketones Negative (Negative); Leukocyte Esterase Negative (Negative); Nitrite Negative (Negative); Urobilinogen 0.2 mg/dL (Up to 0.2); pH 6.5 (5-8)
[2022-09-26 23:02] LABS: Salicylate 5.2 mg/dL (<2.8)
[2022-09-26 23:03] LABS: Acetaminophen < 2 ug/mL (10-30)
[2022-09-26] MEDS: Acetaminophen 500 MG TAB 1000 MG PO (23:05)
[2022-09-26] MEDS: LORazepam 1 MG TAB PO (23:05)
[2022-09-26 23:11] LABS: *AMPHETAMINES SCREEN URINE Negative (Negative); *BARBITURATES SCREEN URINE Negative (Negative); *BENZODIAZEPINES SCREEN URINE Negative (Negative); Cannabinoids THC Positive (Negative); Cocaine Screen,Urine Negative (Negative); METHADONE URINE SCREEN Positive (Negative); OPIATES URINE SCREEN Negative (Negative)
[2022-09-26 23:11] LABS: ALT 20 U/L (14-59); AST 16 U/L (15-37); Albumin 4.8 g/dL (3.4-5.0); Alkaline Phosphatase 102 U/L (46-116); Anion Gap 9.3 mmol/L (3-11); BUN 12 mg/dL (7-18); Bilirubin, Total 0.2 mg/dL (0.2-1.0); CO2 26.7 mmol/L (21.0-32.0); Calcium 9.9 mg/dL (8.5-10.1); Chloride 102 mmol/L (98-107); Estimated GFR 73.95 (mL/min/1.73m2); Glucose 82 mg/dL (74-106); Potassium 3.8 mmol/L (3.5-5.1); Sodium 138 mmol/L (136-145); TSH (W/Ref FT4) 3.87 uIU/mL (0.36-3.74); Total Protein 8.9 g/dL (6.4-8.2)
[2022-09-26 23:12] LABS: Tricyclic Antidepressants Negative (Negative)
[2022-09-26 23:13] LABS: ETHANOL BLOOD < 3.0 mg/dL (<10)
[2022-09-26 23:30] LABS: FREE T4 0.62 ng/dL (0.76-1.46)
--- NOTE | 2022-09-27 08:35 | W.EDPROG ---
Date of service: 09/27/22 Time of Service: 07:30 Medical Decision Making 0730 -- please see Dr. Bingham's note for initial presentation, exam and plan. Case endorsed to continue to monitor while awaiting placement. 1100 -- Case discussed with Rae from mental health who just assessed patient. Patient remains voluntary and plan is to continue to seek inpatient hospitalization. Referrals were placed again today, there may be a potential bed available so we will continue to hold in the ED at this time. 1150 -- Case d/w Dr. Barcenas who accepts pt for transfer to [place]. Patient has been comfortable and cooperative. Dr. Barcenas informed of TSH and free T4 results and that pt can follow up as outpatient for this. A referral has been placed to pt's pcp office to schedule a follow up evaluation for recheck of her thyroid function as indicated. Medical Records Medical records reviewed: Yes I reviewed the patient's medical records. Lab Data Lab results reviewed: Yes I reviewed the patient's lab results. Labs: Laboratory Tests Range/Units 09/26/22 09/26/22 09/26/22 22:25 22:25 22:36 WBC (4.4-10.8) 10^3/uL RBC (3.93-5.22) 10^6/uL Hgb (11.2-15.7) g/dL Hct (36.0-46.0) % MCV (80-95) fL MCH (27.0-33.0) pg MCHC (32.0-36.0) % RDW (11.7-14.6) % Plt Count (130-400) 10^3/uL MPV (8.0-11.0) fL Immature Gran % Neutrophils % Lymphocytes % Monocytes % Eosinophils % Basophils % Nucleated RBC % (0.0-0.3) % Absolute Neutrophils (1.2-6.7) 10^3/uL Absolute Lymphocytes (1.2-3.4) 10^3/uL Absolute Monocytes (0.1-0.8) 10^3/uL Absolute Eosinophils (0.0-0.7) 10^3/uL Absolute Basophils (0.0-0.2) 10^3/uL Sodium (136-145) mmol/L 138 Potassium (3.5-5.1) mmol/L 3.8 Chloride (98-107) mmol/L 102 Carbon Dioxide (21.0-32.0) mmol/L 26.7 Anion Gap (3-11) mmol/L 9.3 BUN (7-18) mg/dL 12 Creatinine (0.55-1.02) mg/dL 1.0 Est GFR (CKD-EPI 2020) (mL/min/1.73m2) 73.95 Glucose (74-106) mg/dL 82 Calcium (8.5-10.1) mg/dL 9.9 Total Bilirubin (0.2-1.0) mg/dL 0.2 AST (15-37) U/L 16 ALT (14-59) U/L 20 Alkaline Phosphatase (46-116) U/L 102 Total Protein (6.4-8.2) g/dL 8.9 H Albumin (3.4-5.0) g/dL 4.8 TSH (0.36-3.74) uIU/mL 3.87 H Free T4 (0.76-1.46) ng/dL 0.62 L Urine Color (Yellow) Yellow Urine Clarity (Clear) Clear Urine pH (5-8) 6.5 Ur Specific [place] (1.005-1.025) 1.010 Urine Protein (Negative) mg/dL Negative Urine Ketones (Negative) mg/dL Negative Urine Blood (Negative) Negative Urine Nitrite (Negative) Negative Urine Bilirubin (Negative) Negative Urine Urobilinogen (Up to 0.2) mg/dL 0.2 Ur Leukocyte Esterase (Negative) Negative Urine Glucose (Negative) mg/dL Negative Salicylates (<2.8) mg/dL Urine Opiates Screen (Negative) Negative Urine Methadone Screen (Negative) Positive A Acetaminophen (10-30) ug/mL Ur Barbiturates Screen (Negative) Negative Ur Tricyclics Screen (Negative) Negative Ur Amphetamines Screen (Negative) Negative U Benzodiazepines Scrn (Negative) Negative Urine Cocaine Screen (Negative) Negative Ur THC Screen (Negative) Positive A Ethyl Alcohol (<10) mg/dL < 3.0 Range/Units 09/26/22 09/26/22 22:36 22:36 WBC (4.4-10.8) 10^3/uL 10.57 RBC (3.93-5.22) 10^6/uL 4.37 Hgb (11.2-15.7) g/dL 13.5 Hct (36.0-46.0) % 39.2 MCV (80-95) fL 90 MCH (27.0-33.0) pg 30.9 MCHC (32.0-36.0) % 34.4 RDW (11.7-14.6) % 12.8 Plt Count (130-400) 10^3/uL 318 MPV (8.0-11.0) fL 9.3 Immature Gran % 0.4 Neutrophils % 59.1 Lymphocytes % 32.8 Monocytes % 5.7 Eosinophils % 1.3 Basophils % 0.7 Nucleated RBC % (0.0-0.3) % 0.0 Absolute Neutrophils (1.2-6.7) 10^3/uL 6.25 Absolute Lymphocytes (1.2-3.4) 10^3/uL 3.47 H Absolute Monocytes (0.1-0.8) 10^3/uL 0.60 Absolute Eosinophils (0.0-0.7) 10^3/uL 0.14 Absolute Basophils (0.0-0.2) 10^3/uL 0.07 Sodium (136-145) mmol/L Potassium (3.5-5.1) mmol/L Chloride (98-107) mmol/L Carbon Dioxide (21.0-32.0) mmol/L Anion Gap (3-11) mmol/L BUN (7-18) mg/dL Creatinine (0.55-1.02) mg/dL Est GFR (CKD-EPI 2020) (mL/min/1.73m2) Glucose (74-106) mg/dL Calcium (8.5-10.1) mg/dL Total Bilirubin (0.2-1.0) mg/dL AST (15-37) U/L ALT (14-59) U/L Alkaline Phosphatase (46-116) U/L Total Protein (6.4-8.2) g/dL Albumin (3.4-5.0) g/dL TSH (0.36-3.74) uIU/mL Free T4 (0.76-1.46) ng/dL Urine Color (Yellow) Urine Clarity (Clear) Urine pH (5-8) Ur Specific [place] (1.005-1.025) Urine Protein (Negative) mg/dL Urine Ketones (Negative) mg/dL Urine Blood (Negative) Urine Nitrite (Negative) Urine Bilirubin (Negative) Urine Urobilinogen (Up to 0.2) mg/dL Ur Leukocyte Esterase (Negative) Urine Glucose (Negative) mg/dL Salicylates (<2.8) mg/dL 5.2 Urine Opiates Screen (Negative) Urine Methadone Screen (Negative) Acetaminophen (10-30) ug/mL < 2 Ur Barbiturates Screen (Negative) Ur Tricyclics Screen (Negative) Ur Amphetamines Screen (Negative) U Benzodiazepines Scrn (Negative) Urine Cocaine Screen (Negative) Ur THC Screen (Negative) Ethyl Alcohol (<10) mg/dL Sign Out Sign Out Data: Sign Out Comment: history of depression with auditory hallucinations, from [place] but is at local [facility] bed, worsening auditory hallucinations telling her to harm herself. Seeking voluntary placement Last updated by Marcos Bingham MD at 09/27/22 00:08 Discharge Plan Disposition Patient Disposition: Psychiatric Hospital/Unit Specific Psychiatric Facility: [facility] Discharge Details Clinical Impression: Major depressive disorder with psychotic features Primary Care Provider: Rose Garcia ED Provider: Cammie Ray Home Meds and New Rx's Prescriptions: No Action aripiprazole 5 mg Tablet 5 mg PO QHS cyclobenzaprine 10 mg Tablet 10 mg PO HS gabapentin 600 mg Tablet 600 mg PO TID nicotine 14 mg/24 hr Patch 24 Hour 14 mg ondansetron 4 mg Tablet,Disintegrating 4 mg PO Q6H PRN sertraline 50 mg Tablet 75 mg PO DAILY senna 8.6 mg Capsule 8.6 mg PO QHS methadone 5 mg/5 mL Syringe 115 mg PO DAILY Rx Instructions: 09/27/22 Confirmed with LOU Lei Discharge Data Discharge Date/Time-TO BE ENTERED AT DEPARTURE: 09/27/22 15:26
[2022-09-27] MEDS: Gabapentin 600 MG TAB PO (08:44)
[2022-09-27] MEDS: Methadone Liquid 10 MG/ML 115 MG PO (08:45)
--- NOTE | 2022-09-27 11:11 | MHPN_ITS ---
Date of service: 09/27/22 Time of Service: 10:45 Mental Health Emergency Note Release [facility] release signed:: Yes Reason for Visit This client was engaged in a stay at [facility]' crisis bed, but was deemed as needing higher care due to her worsening symptoms. This client became escalated with staff, per Queta Guallpa's report, leading to ES being paged to intervene last night. Client is currently at [facility] and is [facility] this morning via zoom for F2F re-assessment. In the last 2 weeks has the pt presented for ES prior to today?: Yes, presented at ED at another facility ([facility]) Client Information Client is: Adult Outpatient Well Housed: No,status: Not homeless, Unstable housing Non Suicidal Self Injury Current: No History: yes, hx of NSSI via picking at scabs and open wounds on her face and body. Safety Risk/Harm to Self or Others Current Ideation to Harm Self or Others: No Risk: Does risk to harm exist?: yes. Access to means: No. Risk: Low Risk Asssessment/Mental Status Appearance: Disheveled Attitude: Cooperative Behavior: Unremarkable Speech: Pressured Affect: Flat and Cogruent with mood Mood: Expansive Thought process: Loose associations and Flight of ideas Hallucinations: yes, (Client reports that she is still hearing the boys talk, however she states that they are just planning what they are going to do next and are not talking to her directly. ) Auditory Delusions: yes, Persectory/Paranoid (Client believes that 2 boys and their mother are after her and are doing things to hurt her and her family. ) and Bizarre Attention: Poor concentration Perception: Not impaired Orientation: Fully orientated Memory: Intact Insight: Poor Judgement: Poor Neurovegetative Symptoms Sleep: Increase (Client reports that she got about 4 hours of solid sleep last night which is an increase. ) Appetitie: No change Interests: No change Energy: No change Libido: Not applicable Substance Use: Do you use nicotine?: Yes Have you used substances in the last 7 days?: No Additional Issues: Assaultive/Threatening Behavior: No Medical Concerns: No Client engaged in active self harm w/weapon: No Threatening to run away: No Child reported abuse/neglect: No Voluntarily presenting for services: Yes Domestic violence is a concern: No Extreme Psychosis or extreme behavior is present: Yes Impression Client is a 37 y/o single caucasion female that lives in [place], [place] with her father. Client was inpatient at the care bed in [facility] until last night when she was assessed by SONYA Tate's who determined that the client needed a higher level of care and was referred to [facility] for increase in auditory/visual hallucinations and paranoia that people are following her, entering her home and stealing things and have implanted a camera device into her eye that allows them to track her and watch her consistently. The client reports that she is doing ok this morning and that she is not currently having visual hallucinations, however is continuing to have auditory hallucinations stating that she is hearing the voices, but they are not currently talking to her. Client reports that she is continuing to have paranoia that people are following her in the emergency room. The client is denying SI as well as intent and plan currently and reports that the voices are not telling her to hurt herself. Plan/Disposition Recommended Disposition: Hospitalization (Referrals have been faxed to [facility] [place], [facility], , and [facility]. ) facilities contacted. Plan: Client will remain at [facility] ED on voluntary status pending admission to an inpatient facility. Clients referrals have been faxed to [facility] [place], [facility], , and [facility]. [facility] [place] is only accepting in house referrals at this time and the other 3 hospitals are currently reviewing the clients referral. Client will be re-assessed by [facility] daily until placement is secured or clients acuity level decreases and she is able to be safety planned back to the community. Person reported agreement to plan: Yes Facilities contacted if Applicable [facility] Not accepted, (Pending review) Other [facility] Not accepted, Only accepting in house referrals [facility] Not accepted, (Pending Review) [facility] Not accepted, (Pending Review) Other Reports/communication Outcome discussed with: ED/Personnel (Verbal passover with attending provider Dr. Ray)
--- NOTE | 2022-09-27 14:55 | CMPROGNOTE_ITS ---
- If Service Date Differs Date of service: 09/27/22 Time of Service: 14:55 Care Management Progress Note DISPOSITION: Leny presents in the ED from the [facility] Care Bed after becoming agitated. She is accepted by the [facility] for a voluntary placement. She will follow up with her PCP, [facility], and plan of care as instructed upon discharge from the [place]. She is transported to [place] via EMS arranged by the [facility]. - Status Status: Voluntary - Reason for Wait Reason for Wait: Inpatient Admission ([facility])
--- NOTE | 2022-09-27 14:55 | PDOC.ERCMPRO ---
- If Service Date Differs Date of service: 09/27/22 Time of Service: 14:55 Care Management Progress Note DISPOSITION: Leny presents in the ED from the [facility] Care Bed after becoming agitated. She is accepted by the [facility] for a voluntary placement. She will follow up with her PCP, [facility], and plan of care as instructed upon discharge from the [place]. She is transported to [place] via EMS arranged by the [place]. - Status Status: Voluntary - Reason for Wait Reason for Wait: Inpatient Admission ([facility])
--- NOTE | 2022-09-28 10:03 | NUR.NOTE ---
Nursing Note: Dr. Ray requested that a referral be faxed to PCP for recheck of thyroid studies. I faxed a referral to PCP along with provider notes, MH note and lab studies for follow up.
== END 2022-09-27 15:26 ==
PROVIDERS: Emergency Medicine; Emergency Provider Physician Assistant; PCP Physician Assistant Medical
DX: F33.3 Major depressive disorder, recurrent, severe with psychotic symptoms (principal); R44.0 Auditory hallucinations; Z79.899 Other long term (current) drug therapy
CPT/HCPCS: 36415; 80053; 80307; 81025; 99285; 80320; 80329; 81003; 84439; 84443; 85025